=== PATIENT | female | born 1970 | race African-American/Black ===

== ENCOUNTER 2021-05-09 01:20 | Emergency (ER) | payer BC, SELFPAY ==
[2021-05-09 01:26] VITALS: BP 179/98; PULSE 87; RESP 18; TEMP 36.2; O2SAT 100
== END 2021-05-09 02:50 | disposition left against medical advice (07) ==
DX: Z53.21 Procedure and treatment not carried out due to patient leaving prior to being seen by health care provider (principal)
CPT/HCPCS: 99199

== ENCOUNTER 2021-10-22 15:49 | Emergency (ER) | payer BC, SELFPAY ==
--- NOTE | 2021-10-22 15:59 | ED.DENTAL ---
HPI - Dental/Oral General Chief complaint: Dental/Oral Stated complaint: Facial Pain Time Seen by Provider: 10/22/21 15:59 Source: patient Mode of arrival: ambulatory Limitations: no limitations History of Present Illness HPI Narrative: 51-year-old female presents with left-sided lower dental pain for 5 to 6 days. Has not seen a dentist since 2016. Denies fever chills. Eating and drinking normally. No difficulty swallowing. Noticed facial swelling yesterday. All systems reviewed and negative except as noted above. Related Data Allergies Allergy/AdvReac Type Severity Reaction Status Date / Time No Known Allergies Allergy Verified 10/22/21 16:08 Review of Systems Review of Systems: CONSTITUTIONAL: Denies fever, chills, or sweats. EYES: Denies visual changes, redness, or discharge. ENT: Denies rhinorrhea, congestion, sore throat, or otalgia. Reports left lower dental pain. CARDIOVASCULAR: Denies chest pain, palpitations, or edema. RESPIRATORY: Denies cough or dyspnea. GASTROINTESTINAL: Denies abdominal pain, nausea, vomiting, or diarrhea. GENITOURINARY: Denies dysuria or hematuria. SKIN: Denies rash or itching. MUSCULOSKELETAL: Denies back pain, joint pain, or myalgia. NEUROLOGIC: Denies headache, numbness, or weakness. PSYCHIATRIC: Denies anxiety or depression. All other systems reviewed are negative, except as documented in HPI. PMFSH Comments At time of signature, agree with nursing past medical, surgical, social and family history. There is no relevant family history pertinent to the presenting complaint. Exam Narrative: GENERAL: This is a well-nourished, well-developed patient, in no apparent distress. HEAD: normocephalic, atraumatic. EYES: PERRL. Sclera clear/white. Vision is grossly intact. EARS: External ears normal, auditory canals clear and without drainage, TMs normal without perforation. Hearing grossly intact. NOSE: External nose normal MOUTH: Multiple missing or decayed teeth. Swelling and erythema to gums of left lower mouth. NECK: Neck supple, non-tender without lymphadenopathy, masses or thyromegaly. CARDIOVASCULAR: Regular rate and rhythm without murmurs, gallops, or rubs. RESPIRATORY: Clear to auscultation. Breath sounds equal bilaterally. No wheezes, rales, or rhonchi. SKIN: warm, Dry, intact with no suspicious lesions or rash, good texture and turgor. NEURO: awake, alert, and oriented to person, place and time. There were no obvious focal neurologic abnormalities. EXTREMITIES: Normal range of motion to all extremities. Course Course Level of Care: Express Care Visit Vital Signs Vital signs: Reviewed MDM - Dental/Oral MDM Narrative Medical decision making narrative: Patient prescribed antibiotic for possible dental infection. Given dental clinic list for follow-up. Differential Diagnosis Differential diagnosis: Likely gingival abscess, dental caries, toothache and dental abscess Discharge Plan Discharge Clinical Impression: Toothache Patient Disposition: Home, Self-Care Condition: Stable Instructions: Toothache (ED) Additional Instructions: Take antibiotic as prescribed. Take ibuprofen every 6-8 hours. Follow-up with dentist at next available appointment. Prescriptions: New amoxicillin 875 mg tablet 875 mg PO Q12H 10 Days Qty: 20 RF: 0 Follow-up/Referrals: Shirley,MD Baldemar [Primary Care Provider] - Stand Alone Forms: Work/School Release IP Time of Disposition: 16:11
[2021-10-22 16:01] VITALS: BP 151/83; PULSE 86; RESP 18; TEMP 36.7; O2SAT 100
== END 2021-10-22 16:15 | disposition home or self-care (01) ==
PROVIDERS: Emergency Provider Nurse Practitioner Family; PCP Internal Medicine
DX: K08.89 Other specified disorders of teeth and supporting structures (principal); E78.00 Pure hypercholesterolemia, unspecified; E11.9 Type 2 diabetes mellitus without complications; I10 Essential (primary) hypertension
CPT/HCPCS: 99213; G0463

== ENCOUNTER 2021-11-05 18:55 | Emergency (ER) | payer BC, SELFPAY ==
--- NOTE | 2021-11-05 19:01 | ED.URI ---
HPI - URI/Sore Throat General Chief Complaint: Upper Respiratory Infection Stated Complaint: Cough Time Seen by Provider: 11/05/21 19:05 Source: patient, RN notes reviewed and old records reviewed Mode of arrival: ambulatory Limitations: no limitations History of Present Illness HPI Narrative: 51-year-old female presents to the [facility] with complaints of a sore throat x2 days. Has tried multiple [id number] products with minimal relief. Patient states that the pain was worse when she tried drinking her coffee this morning and felt like her throat was on fire. Denies any fevers, chest pain, abdominal pain. Onset (ago): day(s) (2) Description of mucous: clear Exacerbating factors: swallowing and speaking Related Data Home Medications Medication Instructions Recorded Confirmed amlodipine 5 mg tablet 5 mg PO DAILY 10/28/21 11/05/21 levetiracetam 500 mg tablet 500 mg PO Q12H 10/28/21 11/05/21 (Keppra) losartan 100 mg tablet 100 mg PO DAILY 10/28/21 11/05/21 multivitamin-ferrous 1 tablet PO DAILY 10/28/21 11/05/21 fumarate-folic acid 18 mg-400 mcg tablet (Centrum) potassium citrate 99 mg capsule 99 mg PO DAILY 10/28/21 11/05/21 Allergies Allergy/AdvReac Type Severity Reaction Status Date / Time No Known Allergies Allergy Verified 11/05/21 10:24 Review of Systems Review of Systems: All systems reviewed & are unremarkable except as noted in HPI and below Constitutional: Constitutional: Reports no additional constitutional complaints, Denies chills and Denies fever(s) Eyes: Eyes: Reports no additional eye complaints ENT: Reports as per HPI and Reports sore throat Cardiovascular: Cardiovascular: Reports no additional cardiovascular complaints Respiratory: Respiratory: Reports no additional respiratory complaints Gastrointestinal: Gastrointestinal: Reports no additional gastrointestinal complaints Musculoskeletal: Musculoskeletal: Reports no additional musculoskeletal complaints Integumentary/Breasts: Skin/Breast: Reports system reviewed and no additional complaints, except as docu Neurologic: Reports system reviewed and no additional complaints, except as documented Psychiatric: Psychiatric: Reports no additional psychiatric complaints Allergic/Immunologic: Allergic/Immunologic: Reports no additional allergic/immunologic complaints PMFSH Past Medical History Medical History Breast cancer 17 years ago Carpal tunnel syndrome of right wrist Congestive heart failure Epilepsia FH: mastectomy Hypertension Kidney stone Tubal Surgical History Surgical History H/O breast implant H/O lumpectomy Hx of breast reduction, elective Social History Social History Smoking packs per day: 0.5 Smoking cigarettes per day: 10.0 Smoking status: Current every day smoker Second hand tobacco smoke exposure: Yes Alcohol intake: current Alcohol use details: once year Substance use: current Substance use type: does not use Comments At the time of my signature, I reviewed and agree with the nursing past medical, surgical, social, and family history. There is no relevant family history pertinent to the patient complaint. Exam Const: General: healthy appearing, no acute distress and alert Nutritional Appearance: well nourished and obese Orientation/consciousness: patient oriented x3 Limitations: no limitations HENMT: Head: normal to inspection Ears: external ears normal General nose exam: Normal external nose present Face and sinus: normal facial exam Mouth: Yes Normal oral and palatal mucosa present Throat: uvula midline, abnormal tonsil bilateral hypertrophy 2+; no erythema, no exudates and crypts and postnasal drainage Eyes: Pupils: Equal, round and reactive pupils present Neck: Neck: normal visual inspection,
[2021-11-05 19:05] VITALS: BP 172/97; PULSE 78; RESP 20; TEMP 36.4; O2SAT 100
== END 2021-11-05 19:24 | disposition home or self-care (01) ==
PROVIDERS: Emergency Provider Nurse Practitioner; PCP Internal Medicine
DX: J02.0 Streptococcal pharyngitis (principal); F17.210 Nicotine dependence, cigarettes, uncomplicated; I11.0 Hypertensive heart disease with heart failure; I50.9 Heart failure, unspecified; Z85.3 Personal history of malignant neoplasm of breast; Z90.10 Acquired absence of unspecified breast and nipple; G40.909 Epilepsy, unspecified, not intractable, without status epilepticus
CPT/HCPCS: 87880; 99213; G0463

== ENCOUNTER 2021-12-02 13:49 | Emergency (ER) | payer BC, SELFPAY ==
[2021-12-02] VITALS (17 sets, daily range): BP systolic 160–195; BP diastolic 71–115; PULSE 72–83; RESP 16–18; TEMP 36.3–36.8; O2SAT 95–100
--- NOTE | ~2021-12-02 | CT_ITS ---
EXAMINATION: CT brain wo con DATE: 12/02/2021 14:50 INDICATION: Generalized headache following seizure and fall TECHNIQUE: Computed tomography (CT) of the head was performed without intravenous contrast. The mA wa s adjusted according to patient size. Iterative reconstruction technique was employed. Exam dose: 60 5.33 mGy-cm total exam DLP. COMPARISON: None FINDINGS: No intracranial mass lesion or hemorrhage or cerebrovascular accident. No midline shift or mass effect. Normal garsia-white matter differentiation. Normal ventricular size. No subdural or epidural hematoma. No fracture or bone destruction of the cranial vault. Included paranasal sinuses and mastoid air cell s are unremarkable. IMPRESSION: No significant abnormality Reviewed, dictated and finalized at [facility]. Reviewed, dictated and finalized at [facility]. IMPRESSION: No significant abnormality
[2021-12-02 15:26] LABS: Basophils Percent Auto 0.5 % (0.2-1.2); Eosinophils Absolute Auto 0.2 K/mm3 (0-0.3); Eosinophils Percent Auto 3.8 % (0-4.4); Hematocrit 44.5 % (37.0-47.0); Hemoglobin 13.9 g/dL (12.0-15.0); Immature Granulocyte Absolute 0.02 K/mm3 (0.00-0.031); Immature Granulocyte Percent A 0.3 % (0-0.5); Lymphocytes Absolute Auto 2.04 K/mm3 (0.9-3.2); Lymphocytes Percent Auto 32.7 % (18.3-44.2); Mean Corpuscular HGB Conc 31.2 g/dl (32-36); Mean Corpuscular Hemoglobin 27.9 pg (26-34); Mean Corpuscular Volume 89.2 fl (80-100); Mean Platelet Volume 9.3 fl (7.4-10.4); Monocytes Absolute Auto 0.5 K/mm3 (0.1-0.6); Neutrophils Absolute Auto 3.4 K/mm3 (1.3-6.7); Neutrophils Percent Auto 54.7 % (45.5-73.1); Platelet Count Result 307 k/mm3 (150-375); Red Blood Count 4.99 M/mm3 (4.2-5.4); Red Cell Distribution Width 15.4 % (11.5-14.5); White Blood Count 6.2 K/mm3 (4.5-10.0)
[2021-12-02 15:36] LABS: Alanine Aminotransferase 24 U/L (6-35); Albumin Level 4.2 g/dL (3.5-5.1); Alkaline Phosphatase 113 U/L (38-126); Anion Gap 9 mmol/L (8-16); Aspartate Amino Transferase 27 U/L (14-36); Bilirubin,Total 0.7 mg/dL (0.2-1.3); Blood Urea Nitrogen 7 mg/dL (7-17); Carbon Dioxide 22 mmol/L (22-30); Chloride 105 mmol/L (98-107); Estimated Glomerular Filt Rate > 60; Glucose 97 mg/dL (65-110); Potassium 4.1 mmol/L (3.4-5.0); Sodium 136 mmol/L (137-145)
--- NOTE | 2021-12-02 15:57 | ED.SEIZURE ---
HPI - Seizure General Chief Complaint: Seizure Stated Complaint: SZ Time Seen by Provider: 12/02/21 14:00 Source: patient, EMS and other History of Present Illness HPI Narrative: Patient presents with a seizure. Patient reports she does not remember the event. She was walking up to go to the restroom She knows she woke up on the ground with healthcare workers. EMS reported that she had a witnessed seizure. Patient has a known seizure disorder is on Keppra her last seizure approximately 3 weeks ago. She was single about taking her medications but she has been under a lot of stress which triggers her migraines which was her seizure disorder. For she has a headache after the seizure which is a more intense than her prior seizures however is doing fairly well. She denies any recent fevers, cough, congestion, nausea, vomiting. Denies any focal numbness or weakness. Reports some blurry vision which is typical after her. Related Data Home Medications Medication Instructions Recorded Confirmed amlodipine 5 mg tablet 5 mg PO DAILY 10/28/21 11/05/21 levetiracetam 500 mg tablet 500 mg PO Q12H 10/28/21 11/05/21 (Keppra) losartan 100 mg tablet 100 mg PO DAILY 10/28/21 11/05/21 multivitamin-ferrous 1 tablet PO DAILY 10/28/21 11/05/21 fumarate-folic acid 18 mg-400 mcg tablet (Centrum) potassium citrate 99 mg capsule 99 mg PO DAILY 10/28/21 11/05/21 chlorthalidone 25 mg tablet 25 mg PO DAILY 11/24/21 furosemide 40 mg tablet 40 mg PO QAM 11/24/21 Allergies Allergy/AdvReac Type Severity Reaction Status Date / Time No Known Allergies Allergy Verified 11/05/21 10:24 Review of Systems Review of Systems: CONSTITUTIONAL: Denies fever, chills, or sweats. EYES: Denies visual changes, redness, or discharge. ENT: Denies rhinorrhea, congestion, sore throat, or otalgia. CARDIOVASCULAR: Denies chest pain, palpitations, or edema. RESPIRATORY: Denies cough or dyspnea. GASTROINTESTINAL: Denies abdominal pain, nausea, vomiting, or diarrhea. GENITOURINARY: Denies dysuria or hematuria. SKIN: Denies rash or itching. MUSCULOSKELETAL: Denies back pain, joint pain, or myalgia. NEUROLOGIC: Denies numbness, dizziness, or weakness. PSYCHIATRIC: Denies anxiety or depression. All systems reviewed & are unremarkable except as noted in HPI and below PMFSH Past Medical History Medical History Breast cancer 17 years ago Carpal tunnel syndrome of right wrist Congestive heart failure Epilepsia FH: mastectomy Hypertension Kidney stone Tubal Surgical History Surgical History H/O breast implant H/O lumpectomy Hx of breast reduction, elective Social History Social History Smoking packs per day: 0.5 Smoking cigarettes per day: 10.0 Smoking status: Current every day smoker Second hand tobacco smoke exposure: Yes Alcohol intake: current Alcohol use details: once year Substance use: current Substance use type: does not use Exam Narrative: GENERAL: Well-appearing, well-nourished, and in no acute distress. HEAD: Normocephalic, atraumatic. EYES: PERRLA and EOMI. ENT: Nares clear, no rhinorrhea or epistaxis. Mucous membranes moist. NECK: Supple. No masses. No JVD CHEST: Clear to auscultation. No respiratory distress. No wheezes rales or rhonchi HEART: Regular rate and rhythm. No murmur heard. Normal peripheral pulses. ABDOMEN: Soft, nontender, nondistended, normal active bowel sounds. EXTREMITIES: Normal range of motion. No edema. SKIN: Warm, dry, no rash. NEURO: Cranial nerves II through XII are intact patient is 5 out of 5 strength in all extremities sensation intact light touch in all extremities alert and oriented x3. PSYCH: Normal mood and affect. Course Reevaluation(s) Reevaluation #1: Patient feeling improved results and plan reviewed with
[2021-12-05 16:16] LABS: Levetiracetam Keppra <2.0
== END 2021-12-02 17:22 | disposition home or self-care (01) ==
PROVIDERS: Emergency Provider Emergency Medicine; PCP Internal Medicine
DX: G40.909 Epilepsy, unspecified, not intractable, without status epilepticus (principal); Z85.3 Personal history of malignant neoplasm of breast; I10 Essential (primary) hypertension
CPT/HCPCS: 36415; 70450; 80053; 80177; 85025; 99284

== ENCOUNTER 2022-01-25 13:00 | Outpatient (RCR) | payer OTHER, SELFPAY ==
--- NOTE | 2022-01-14 08:55 | OTOPEVAL ---
OCCUPATIONAL THERAPY INITIAL EVALUATION REPORT 01/14/22 Thank you for referring Giorgio Larose to [facility] [place].? The patient is scheduled to be seen for therapy? 2x/week for 4 weeks. Please review, sign, date and return this plan of care AAMIR. I agree with and certify that the following plan of care is medically necessary. Referring Physician Date Referring Provider: Eliu Steward MD *OT Outpatient Evaluation Start: 01/14/22 07:40 Outpatient Past Medical History Neurological History Hx Epilepsy Yes Cardiovascular History Hx Congestive Heart Failure Yes Hx Hypercholesterolemia Yes Hx Hypertension Yes Genitourinary History Hx Kidney Stones Yes Endocrine History Hx Diabetes Yes Other History Hx Cancer Yes: breast cancer Hx Implanted Device Yes: port and then removed Evaluation Information Problem Diagnosis Right carpal tunnel syndrome, enthesopathies Subjective Information Patient unsure how long she's Query Text:As Reported By Patient/ had symptoms, she guesses at Family least two years. 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 She states she has been unable to braid her grand childrens hair for 2 months now. 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 She states she sometimes wakes up in the middle of the night due to the severe pain. She has to use her left hand to brush her teeth. She is scheduled for an EMG on 03/04/22. Pain Assessment Self Report Pain Assessment Right Hand(s) Reported Pain Level 8 Pain Description Tingling Lowest Pain Intensity 6 Greatest Pain Intensity 10 Pain Score Pain Score 8: Self Report Upper Extremity Range of Motion Elbow/Forearm Range of Motion Right Elbow Flexion - Active 120 Elbow Extension - Active -30 Elbow/Forearm Range of Motion Comments Pronation/supination are WNL. Patient reports sharp increase in pain when trying to straighten or bend her elbow. Tends to move her arm with the help of her left hand. Actively she is unable to touch her
--- NOTE | 2022-01-22 11:24 | PCOTNOTE ---
Patient did not show up for scheduled appointment this date. Called patient and left voicemail regarding next appt. time.
--- NOTE | 2022-01-29 08:27 | PCOTNOTE ---
Late note for 01/28/22 - Patient did not show up for scheduled appointment this date.
--- NOTE | 2022-02-02 14:29 | OTOPDC ---
Evaluation Information Assessment Status Discharge Subjective Information Patient has not returned for any further treatments since 01/25/2022, therefore she will be discharged at this time. Patient?s initial visit was on 01/14/2022 and she had a total of 2 visits . She has not shown for 3 appointments and we have been unable to reach her. Therapy progress has been very limited due to amount of pain and patient is very guarded when asked to move the right UE. She does have reduced pain with active ROM HEP, however. She also is very hypersensitive and has been unable to tolerate soft tissue mobilization to the right elbow or wrist. At this time she was just working on being able to tolerate rubbing lotion in. The goals have not been met. She has been instructed in active ROM and the beginning phases of desensitization.
== END 2022-03-30 11:57 | disposition home or self-care (01) ==
LOC: ANHOT 13:00
PROVIDERS: PCP Internal Medicine; Visit Provider Orthopaedic Surgery
DX: G56.01 Carpal tunnel syndrome, right upper limb (principal); M77.8 Other enthesopathies, not elsewhere classified
CPT/HCPCS: 97110; 97140; 97166; 99199

== ENCOUNTER 2022-03-04 09:35 | Outpatient (CLI) | payer OTHER, SELFPAY ==
--- NOTE | 2022-03-04 11:00 | NEURO_ITS ---
IMRESSION: Complaints right hand pain. # Evidence of mild right carpal tunnel syndrome. # EMG examination was normal. Nerve Conduction Studies Anti Sensory Summary Table Stim Site NR Peak (ms) P-T Amp (?V) Site1 Site2 Delta-P (ms) Dist (cm) Omkar (m/s) Right Median Anti Sensory (2-3nd Digit) Wrist 5.0 27.6 Wrist 2-3nd Digit 5.0 14.0 28 Wrist 5.4 13.6 Wrist 2-3nd Digit 5.0 14.0 28 Right Radial Anti Sensory (Base 1st Digit) Wrist 2.3 36.0 Wrist Base 1st Digit 2.3 0.0 Right Ulnar Anti Sensory (5th Digit) Wrist 3.0 29.9 Wrist 5th Digit 3.0 14.0 47 Motor Summary Table Stim Site NR Onset (ms) O-P Amp (mV) Site1 Site2 Delta-0 (ms) Dist (cm) Omkar (m/s) Right Median Motor (Abd Poll Brev) Wrist 4.0 7.6 Elbow Wrist 4.4 25.0 57 Elbow 8.4 7.0 Right Ulnar Motor (Abd Dig Minimi) Wrist 2.7 2.8 A Elbow Wrist 5.3 31.0 58 A Elbow 8.0 2.4 B Elbow Wrist 3.7 23.0 62 B Elbow 6.4 2.7 F Wave Studies NR F-Lat (ms) L-R F-Lat (ms) Right Median (Mrkrs) (Abd Poll Brev) 30.55 Right Ulnar (Mrkrs) (Abd Dig Min) 28.44 EMG Side Muscle Nerve Root Ins Act Fibs Amp Dur Recrt Comment Right 1stDorInt Ulnar C8-T1 Nml Nml Nml Nml Nml Right Ext Indicis Radial (Post Int) C7-8 Nml Nml Nml Nml Nml Right Ext Digitorum Radial (Post Int) C7-8 Nml Nml Nml Nml Nml Right BrachioRad Radial C5-6 Nml Nml Nml Nml Nml Right PronatorTeres Median C6-7 Nml Nml Nml Nml Nml Right Abd Poll Brev Median C8-T1 Nml Nml Nml Nml Nml MTDD
== END 2022-03-04 09:36 | disposition home or self-care (01) ==
PROVIDERS: PCP Internal Medicine; Visit Provider Orthopaedic Surgery
DX: G56.01 Carpal tunnel syndrome, right upper limb (principal)
CPT/HCPCS: 95886; 95909

== ENCOUNTER 2022-03-18 08:24 | Outpatient (CLI) | payer OTHER, SELFPAY ==
--- NOTE | 2022-03-18 08:36 | ECG_ITS ---
Measurements Intervals [place] Rate: 75 P: 52 TN: 185 QRS: -43 QRSD: 126 T: 81 QT: 428 QTc: 480 Interpretive Statements SINUS RHYTHM POSSIBLE LEFT ATRIAL ENLARGEMENT [-0.1mV P WAVE IN V1/V2] MARKED LEFT AXIS DEVIATION [QRS AXIS < -30] LEFT VENTRICULAR HYPERTROPHY AND ST-T CHANGE [VOLTAGE CRITERIA PLUS ST/T ABNORMALITY] POSSIBLE SEPTAL MYOCARDIAL INFARCTION [30 ms Q WAVE IN V1/V2], OF INDETERMINATE AGE ARTIFACT PRESENT IN LEAD V3 AND V5 NO PREVIOUS ECG AVAILABLE FOR COMPARISON Electronically Signed On 03-18-2022 14:45:14 CDT by Nicki Bishop M.D.
[2022-03-18 09:07] LABS: Anion Gap 10 mmol/L (8-16); Blood Urea Nitrogen 11 mg/dL (7-17); Calcium 8.8 mg/dL (8.4-10.2); Carbon Dioxide 26 mmol/L (22-30); Chloride 106 mmol/L (98-107); Estimated Glomerular Filt Rate > 60; Glucose 103 mg/dL (65-110); Potassium 3.5 mmol/L (3.4-5.0); Sodium 142 mmol/L (137-145)
== END 2022-03-18 08:25 | disposition home or self-care (01) ==
LOC: ANHSURGERY 08:29
PROVIDERS: Anesthesiology; PCP Internal Medicine; Visit Provider Orthopaedic Surgery
DX: Z01.818 Encounter for other preprocedural examination (principal); I10 Essential (primary) hypertension; R94.31 Abnormal electrocardiogram [ECG] [EKG]
CPT/HCPCS: 36415; 80048; 93005

== ENCOUNTER 2022-03-23 01:43 | Day surgery (SDC) | payer OTHER, SELFPAY ==
[2022-03-16 09:04] VITALS: BMI 43.9
--- NOTE | 2022-03-16 09:12 | PC.NURSE ---
Report to the Outpatient Waiting Room, entrance under the green pavilion located off [facility], at time _1130 on date 03/23/22. OR Time: __1330_. Time changes happen often and if your time is changed the preop area will call you the afternoon before. - You and your visitor will be asked to self-screen and do not enter if you have any COVID symptoms. - We encourage only one visitor and NO visitors under age 16 are allowed at this time. Your visitor will receive communication by the phone number that is given day of service. - The patient visitor is requested to social distance or may leave the building when not with patient due to restrictions. - A mask is required within the hospital. Patients may have clear liquids (water, carbonated beverages, clear teas, apple juice) until 3 hours prior to surgery with a maximum of 20 ounces. - No food from midnight until time of surgery - Infants may have breast milk until 4 hours before surgery, infant formula 6 hours prior to surgery. - Children will be allowed to drink immediately following surgery. If applicable, please bring a bottle or sippy cup to assist with drinking. Juice, water, soda, and popsicles are readily available. For infants on formula, please bring formula the day of surgery. Pacifiers are allowed. Take the following medications with a SIP of water the morning of surgery: KEPPRA, AMLODIPINE Medications to discontinue per physician MULTIVITAMIN Date to take last dose 03/19/22 Please no make-up, nail german, hairspray, perfume, deodorant, or body powder the day of surgery. No jewelry (including any body piercings) or valuables the day of surgery, leave them at home. Please take a shower or bath the night before, or the morning of, surgery with an antibacterial soap. Wear comfortable, loose fitting clothing. Children are encouraged to wear pajamas. - Jewelry must be removed prior to entering the operating room. Rings and piercings that are not removed may be cut off. - The hospital will not accept responsibility for valuables. - Please leave all valuables, including medications, at home the day of surgery. If you are going home after surgery, a licensed services delivery driver must drive you home. - NO public transportation without another adult. - We recommend that an adult stay with you for 24 hours following discharge. - We also recommend that you do not drive, make important decision, drink alcoholic beverages, or take any drugs that were not prescribed by your health care provider for at least 24 hours after your discharge time. For Pediatric surgeries, we recommend two adults accompany the child home. Follow any additional instructions given to you from your surgeon. If you or anyone in your household have experienced Covid symptoms in the past week, please notify your surgeon or the nurse liaison at the phone number below for possible testing. Telephone instructions given to PATIENT_and asked if any additional questions and then verbalized understanding. Patient advised to call surgeon office or pre surgery nurse liaison [phone] if any additional questions.
[2022-03-23] VITALS (10 sets, daily range): BP systolic 136–210; BP diastolic 84–112; PULSE 69–85; RESP 14–20; TEMP 36–36.5; O2SAT 97–100
--- NOTE | 2022-03-23 10:55 | P.PNAN_ITS ---
Anes - Initial Pre Proc Eval Procedure: Operation Date: 03/23/22 13:30 Proposed Procedures p Right Carpal Tunnel Release - Eliu Steward MD Date/Time: 03/23/22 10:55 Surgeon: Eliu Steward MD Pre Op Diagnosis: right carpal tunnel syndrome Patient Data Age: 51 Gender: F Height: 1.75 m Weight: 135 kg Allergies Allergy/AdvReac Type Severity Reaction Status Date / Time paper tape Allergy Mild blisters Uncoded 03/23/22 11:25 Home Medications Medication Instructions Recorded Confirmed Type amlodipine 5 mg tablet 5 mg PO DAILY 10/28/21 03/23/22 History levetiracetam 500 mg tablet 500 mg PO Q12H 10/28/21 03/23/22 History (Keppra) losartan 100 mg tablet 100 mg PO DAILY 10/28/21 03/23/22 History multivitamin-ferrous 1 tablet PO DAILY 10/28/21 03/23/22 History fumarate-folic acid 18 mg-400 mcg tablet (Centrum) potassium citrate 99 mg capsule 99 mg PO DAILY 10/28/21 03/23/22 History chlorthalidone 25 mg tablet 25 mg PO DAILY 11/24/21 03/23/22 History furosemide 40 mg tablet 40 mg PO QAM 11/24/21 03/23/22 History Patient hx anesthesia problems: none Family hx anesthesia problems: none Results Review: All pre-operative results and documents have been reviewed as part of the pre- operative evaluation. [facility] Past Medical History Medical History (Updated 03/10/22 @ 10:25 by Lissa Major) Breast cancer 17 years ago Carpal tunnel syndrome of right wrist Congestive heart failure Epilepsia FH: mastectomy Hypertension Kidney stone Tubal Surgical History Surgical History H/O breast implant H/O lumpectomy Hx of breast reduction, elective Family History Family History (Updated 01/06/22 @ 15:15 by Melissa Martinez MA) Grandparent Cancer Social History Social History Smoking packs per day: 0.5 Smoking cigarettes per day: 10.0 Years smoked: 20 Smoking pack-years: 10.00 Smoking status: Current every day smoker Second hand tobacco smoke exposure: Yes Alcohol intake: current Alcohol use details: once year Substance use: current Substance use type: does not use Living arrangements: with family Kinza - Matt Final PreProcedure Day of Procedure 03/23/22 10:55 Patient weight: morbidly obese Heart: regular rate and rhythm Lungs: clear to auscultation Airway: Mallampati scale class II Neurological: alert and oriented Last oral intake: >/= 8 hours ASA classification: III Emergent: no Anesthetic plan: proceed Anesthesia type and monitoring: general LMA and standard monitoring Results Review: All pre-operative results and documents have been reviewed as part of the pre- operative evaluation. Informed Consent: The patient's anesthetic plan and its attendant risks and benefits were discussed with the patient/family/POA. Questions were solicited and answers provided to the satisfaction of the patient/family/POA.
--- NOTE | 2022-03-23 11:18 | WPDHPUPDATE1 ---
History and Physical Update Update Date/Time: 03/23/22 11:18 History and Physical has been reviewed, including an updated exam of the patient. There are NO changes in the patient's condition. Risks, benefits, and alternatives have been discussed and questions answered. Patient agrees to proceed with procedure.
--- NOTE | 2022-03-23 12:11 | SUR.PREOP ---
Hx left mastectomy. Discussed with patient and Dr Khan concerning need for IV. Both said to use the left arm.
[2022-03-23] MEDS: LACTATED RINGERS 1,000 ML 30 ML IV CONT (12:46)
[2022-03-23] MEDS: ACETAMINOPHEN 500 MG TABLET 1000 MG PO (12:46)
[2022-03-23] MEDS: KETOROLAC 15 MG/ML VIAL (*BKC) IV PUSH (12:49)
--- NOTE | 2022-03-23 14:11 | SUR.PREOP ---
Discussed delay with patient.
[2022-03-23] MEDS: ceFAZolin 3 GM/D5W 100 ML 100 ML IVPB (14:41)
[2022-03-23] MEDS: BUPIVACAINE/EPINEPHRINE 0.25% 50 ML VIAL 10 ML INFILTRATE (14:59)
--- NOTE | 2022-03-23 15:43 | P.OP_ITS ---
Procedure Note - Detailed Date of Procedure 03/23/22 Pre-op Diagnosis Right carpal tunnel syndrome Post-op Diagnosis Same Procedure Performed Right Carpal tunnel release Surgeon Eliu Steward MD Tool And Die Technician Rosie Wilkinson PA-C Anesthesia General Description of Procedure After a general anestheic was administer, the hand was prepped and draped in the usual sterile fashion. The proposed incision was marked using typical anatomic landmarks. 6ML 0.5% Marcaine with epinephrine was injected along the incision line and at the distal forearm. The limb was exsanguinated and the tourniquet inflated to 250 millimeters of mercury. A longitudinal incision was taken sharply. Dissection was brought down to the transverse carpal ligament. Under direct vision the ligament was incised sharply. The proximal release was carried out with dissection scissors. The contents of the carpal canal were protected with a [place] elevator. The transverse carpal ligament was confirmed to be widely patent. The wound closed with 3-0 Prolene. Sterile dressing was applied with a soft splint. The patient was extubated and brought to the recovery room in stable condition. Estimated Blood Loss 1 Tourniquet Time 6 Pathology None sent Complications No immediate complications Condition Stable Disposition PACU [facility] Billing Surgery - Charge Forward: Surgery Billing
[2022-03-23] MEDS: LABETALOL HCL INJ 100 MG/20 ML VIAL 10 MG IV PUSH (16:21)
[2022-03-23] MEDS: fentaNYL CITRATE INJ (*CRX) 100 MCG/2 ML VIAL 25 MCG IV PUSH ×2 (17:06→17:09)
--- NOTE | 2022-03-23 18:05 | SUR.PHASEII ---
1730 anesthesia is aware of high bp, pt instructed to go home and take her losartan and follow up with primary
== END 2022-03-23 17:55 | disposition home or self-care (01) ==
PROVIDERS: PCP Internal Medicine; Visit Provider Orthopaedic Surgery
PROC: (CPT 64721; principal; 2022-03-23 13:30)
DX: G56.01 Carpal tunnel syndrome, right upper limb (principal); I11.0 Hypertensive heart disease with heart failure; I50.9 Heart failure, unspecified; G40.909 Epilepsy, unspecified, not intractable, without status epilepticus; Z85.3 Personal history of malignant neoplasm of breast; F17.210 Nicotine dependence, cigarettes, uncomplicated; E66.01 Morbid (severe) obesity due to excess calories; Z68.41 Body mass index [BMI] 40.0-44.9, adult
CPT/HCPCS: 64721; A9270; J0690; J1885; J2250; J2405; J2704; J3010; J7120

== ENCOUNTER 2022-04-19 07:14 | Outpatient (RCR) | payer OTHER, SELFPAY | END 2022-07-05 14:02 | disposition home or self-care (01) | LOC: ANHOT 07:14 | PROVIDERS: PCP Internal Medicine; Visit Provider Physician Assistant Surgical | DX: Z47.89 Encounter for other orthopedic aftercare (principal) | CPT/HCPCS: 99199 ==

== ENCOUNTER 2022-05-23 10:55 | Observation (INO) | payer OTHER, SELFPAY ==
[2022-05-23] VITALS (31 sets, daily range): BP systolic 145–189; BP diastolic 88–106; PULSE 79–95; RESP 16–26; TEMP 36.3; O2SAT 92–100
--- NOTE | ~2022-05-23 | CT_ITS ---
EXAMINATION: CTA chest PE protocol DATE: 05/23/2022 13:29 INDICATION: Chest pain TECHNIQUE: Computed tomography angiography (CTA) of the chest was performed with 100 mL Omnipaque-350 intravenous contrast timed to evaluate the pulmonary arteries. Coronal maximum intensity projection 3D-reconstructions were created by the technologist. The dose-length product (DLP) was 838.98 mGy-cm. Automated exposure control and iterative reconstruction technique were employed. COMPARISON: None. FINDINGS: The pulmonary arteries are well-opacified. No pulmonary embolism is identified. Respiratory motion artifact slightly limits the examination. There are changes of left mastectomy with implant r econstruction. The heart size is normal. There is mild bilateral hilar lymphadenopathy, likely reacti ve. There are dependent airspace opacities in interlobular septal thickening of the lungs. No pleural effusion or pneumothorax. There is mild thoracic spondylosis. IMPRESSION: 1. No pulmonary embolism identified, sensitivity slightly limited by motion artifact. 2. Dependent airspace opacities in interlobular septal thickening of the lungs, likely pneumonia, ate lectasis, and mild pulmonary edema. Reviewed, dictated and finalized at location A. ZE PLATER IMPRESSION: 1. No pulmonary embolism identified, sensitivity slightly limited by motion art ifact. 2. Dependent airspace opacities in interlobular septal thickening of the lungs, likely pneumonia, atelectasis, and mild pulmonary edema.
--- NOTE | ~2022-05-23 | XR_ITS ---
EXAMINATION: XR chest 2V DATE: 05/23/2022 11:32 INDICATION: Generalized chest pain, history of congestive heart TECHNIQUE: Frontal and lateral views of the chest are obtained COMPARISON: None available FINDINGS: There are interstitial opacities with a mid and lower lung zone predominance. No pleural ef fusion or pneumothorax. The cardiomediastinal silhouette is normal. Surgical clips are noted in the l eft axilla. IMPRESSION: 1. Interstitial opacities with a mid and lower lung zone predominance, likely mild pulmonary edema. Reviewed, dictated and finalized at location A. TIONAL HORTICULTURE INSTRUCTOR IMPRESSION: 1. Interstitial opacities with a mid and lower lung zone predominance, likely m ild pulmonary edema.
--- NOTE | 2022-05-23 11:03 | ECG_ITS ---
Measurements Intervals [place] Rate: 91 P: 48 CT: 186 QRS: -43 QRSD: 128 T: 82 QT: 427 QTc: 525 Interpretive Statements SINUS RHYTHM POSSIBLE LEFT ATRIAL ENLARGEMENT [-0.1mV P-WAVE IN V1/V2] LEFT AXIS DEVIATION [QRS AXIS < -30] POSSIBLE LEFT VENTRICULAR HYPERTROPHY [VOLTAGE CRITERIA PLUS LAE OR QRS WIDENING] COMPARED TO ECG 03/18/2022 08:46:51 NO SIGNIFICANT CHANGES Electronically Signed On 05-23-2022 14:49:31 LANDSCAPE CONTRACTOR by Karen Wynn M.D.
[2022-05-23] MEDS: ASPIRIN 81 MG CHEWABLE TABLET 324 MG PO (11:11)
--- NOTE | 2022-05-23 11:19 | ED.CHESTPAIN ---
HPI - Chest Pain General Chief Complaint: Chest Pain Stated Complaint: CP Time Seen by Provider: 05/23/22 11:09 History of Present Illness HPI narrative: Patient is a 51-year-old female with history of CHF here for evaluation of chest pain. Patient states the pain has been going on for the past 8 hours. Pain is in the center of her chest, feels like a knife is stabbing me but also is described as a crushing sensation. Occasionally will radiate down her left arm. Associated with some shortness of breath, and has been coughing since yesterday. she denies history of previous similar sensation. She was in her usual state of health yesterday. No fevers, chills, nausea, vomiting, syncope. Does note that her shoes are fitting tighter than usual. She has only seen a senior market research analyst once in the past and was told she had CHF but has not seen him in over 3 years. She is unsure of their name. She has never had a cardiac catheterization in the past. Related Data Home Medications Medication Instructions Recorded Confirmed multivitamin-ferrous 1 tablet PO DAILY 10/28/21 05/21/22 fumarate-folic acid 18 mg-400 mcg tablet (Centrum) potassium citrate 99 mg capsule 99 mg PO DAILY 10/28/21 05/21/22 Allergies Allergy/AdvReac Type Severity Reaction Status Date / Time paper tape Allergy Mild blisters Uncoded 05/23/22 11:50 Review of Systems Review of Systems: Gen: Denies fevers or chills Eyes: Denies eye pain or visual change ENT: Denies congestion Respiratory: Reports cough CV: Reports chest pain GI: Denies abdominal pain nausea, emesis or diarrhea denies burning, urgency, frequency or hematuria Musculoskeletal: Denies back pain or muscle pain Neuro: Denies numbness, tingling, weakness or focal weakness Skin: Denies rash Except as documented, all other systems reviewed and negative [facility] Past Medical History Medical History Breast cancer 17 years ago Carpal tunnel syndrome of right wrist Congestive heart failure Epilepsia FH: mastectomy Hypertension Kidney stone Sore throat Tubal Surgical History Surgical History H/O breast implant H/O lumpectomy Hx of breast reduction, elective Family History Family History Grandparent Cancer Social History Social History (Updated 04/20/22 @ 15:32 by Molly Garcia CMA) Smoking packs per day: 0.5 Smoking cigarettes per day: 10.0 Years smoked: 20 Smoking pack-years: 10.00 Smoking status: Current every day smoker Tobacco type: cigarettes Second hand tobacco smoke exposure: Yes Alcohol intake: current Alcohol use details: once year Substance use: current Substance use type: does not use Lack of Transportation: No Lack of Food: Never True Current Housing: I Have Housing Concerned About Future Housing: No Difficulty Paying Gas/Electric Bills: No Difficulty Paying for Meds: No Currently Unemployed: YES Education: High School Diploma/GED Difficulty w/ Childcare or Family Care: No Exam Narrative: APPEARANCE: Well appearing, no pain in distress, well-nourished. Head: Normocephalic and atraumatic. EYES: PERRLA/EOMI, conjunctivae clear NOSE: No nasal drainage EARS: External ear normal in appearance THROAT: Oropharynx is clear. Mucous membranes are moist. NECK: Supple. No adenopathy, no masses. RESPIRATORY: Airway patent, respirations nonlabored. Clear to auscultation bilaterally, no rales, rhonchi, wheezing. CARDIOVASCULAR: Regular rate and rhythm without murmurs, rubs, or gallops. ABDOMINAL: Normoactive bowel sounds. Soft, nontender, nondistended. No rebound tenderness or guarding. MUSCULOSKELETAL: Trace nonpitting edema to bilateral feet. Extremities are warm and well-perfused. Moves all extremities well. NEURO: Normal speech. No focal
[2022-05-23 11:31] LABS: Basophils Percent Auto 0.6 % (0.2-1.2); Eosinophils Absolute Auto 0.2 K/mm3 (0-0.3); Eosinophils Percent Auto 2.9 % (0-4.4); Hematocrit 39.4 % (37.0-47.0); Hemoglobin 12.5 g/dL (12.0-15.0); Immature Granulocyte Absolute 0.02 K/mm3 (0.00-0.031); Immature Granulocyte Percent A 0.3 % (0-0.5); Lymphocytes Absolute Auto 2.29 K/mm3 (0.9-3.2); Lymphocytes Percent Auto 32.9 % (18.3-44.2); Mean Corpuscular HGB Conc 31.7 g/dl (32-36); Mean Corpuscular Hemoglobin 27.3 pg (26-34); Mean Platelet Volume 9.3 fl (7.4-10.4); Monocytes Absolute Auto 0.3 K/mm3 (0.1-0.6); Monocytes Percent Auto 4.7 % (2.6-8.5); Neutrophils Absolute Auto 4.1 K/mm3 (1.3-6.7); Neutrophils Percent Auto 58.6 % (45.5-73.1); Platelet Count Result 392 k/mm3 (150-375); Red Blood Count 4.58 M/mm3 (4.2-5.4); Red Cell Distribution Width 15.7 % (11.5-14.5)
[2022-05-23 11:40] LABS: Prothrombin Time 12.8 Seconds (11.1-14.7)
[2022-05-23 11:42] LABS: Partial Thromboplastin Time 29.1 SECONDS (22.3-36.8)
[2022-05-23] MEDS: levETIRAcetam 500MG/NACL 100ML 500 MG/100 ML BAG 400 MG IVPB (11:47)
--- NOTE | 2022-05-23 11:48 | PC.NURSE ---
Pt had a very short/ less than a minute seizure. Pt has hx of seizures and is on medications.
[2022-05-23 11:51] LABS: NT Pro B Type Natriuretic Pept 1150 pg/mL (5-100); Troponin I < 0.012 ng/mL (0.000-0.034)
[2022-05-23 11:52] LABS: Alanine Aminotransferase 19 U/L (6-35); Albumin Level 4.5 g/dL (3.5-5.1); Alkaline Phosphatase 108 U/L (38-126); Anion Gap 5 mmol/L (8-16); Aspartate Amino Transferase 28 U/L (14-36); Bilirubin,Total 0.6 mg/dL (0.2-1.3); Blood Urea Nitrogen 9 mg/dL (7-17); Calcium 9.2 mg/dL (8.4-10.2); Carbon Dioxide 28 mmol/L (22-30); Chloride 105 mmol/L (98-107); Estimated CRCL calculation 106 ml/min; Estimated Glomerular Filt Rate > 60; Glucose 102 mg/dL (65-110); Lipase 49 U/L (23-300); Potassium 3.8 mmol/L (3.4-5.0); Sodium 138 mmol/L (137-145)
[2022-05-23 12:12] LABS: D Dimer 2.08 ug/mL (<0.48)
[2022-05-23 15:33] LABS: Troponin I < 0.012 ng/mL (0.000-0.034)
[2022-05-23 15:48] LABS: Influenza A QL RT-PCR Negative (Negative); Influenza B QL RT-PCR Negative (Negative); SARS-CoV-2 RNA PCR Negative
[2022-05-23] MEDS: FUROSEMIDE INJ 40 MG/4 ML VIAL IV PUSH (15:56)
[2022-05-23] MEDS: NITROGLYCERIN SL 0.4 MG TABLET SUBLINGUAL (15:57)
[2022-05-23] MEDS: MORPHINE SULFATE (*CRX) 4 MG/ML INJ IV PUSH (16:20)
[2022-05-23] MEDS: DOXYCYCLINE 100 MG/NS 100 ML 100 MG/100 ML BAG IVPB (17:17)
[2022-05-23 17:41] LABS: Troponin I < 0.012 ng/mL (0.000-0.034)
--- NOTE | 2022-05-23 19:00 | PM.IMHP ---
H&P: HPI History of Present Illness Date/Time: 05/23/22 19:00 Chief Complaint: Chest pain. Narrative: This is a pleasant 51-year-old female with history of hypertension, diastolic congestive heart failure, epilepsy, and history of DVT related to Port-A-Cath who presented to the emergency department for evaluation of chest pain. The day after Thanksgiving she was sick for several days with high fevers, cough, and nausea. Her symptoms improved however returned approximately 2 weeks thereafter and she has had a lingering, nonproductive cough and intermittent nausea lower since that time. She has been having pleuritic chest pain the last couple of days which she describes as knife-like pain, worse with movement, deep inspiration, and cough. Her D-dimer and proBNP were a bit elevated and a subsequent CT of the chest showed no evidence of pulmonary embolism however it noted dependent airspace opacities in the anterior a lobular septal thickening of the lungs distant with pneumonia, atelectasis, or mild pulmonary edema. EKG showed a sinus rhythm with left axis deviation and probable LVH and left atrial enlargement. Troponins have been negative x3 however given her history I was asked to admit her for close monitoring and Cardiology consultation. At the time my evaluation she is resting comfortably and has no specific complaints though she continues to have the pleuritic pain with coughing. Review of Systems Review of Systems: Twelve systems were reviewed and are negative except for as per HPI. [facility] Past Medical History Medical History (Updated 05/23/22 @ 23:33 by Chanelle العراقي PA-C) Breast cancer (2004) Status post left breast lumpectomy and chemo radiation. Congestive heart failure Deep venous thrombosis Related to Port-A-Cath. Epilepsy Hypertension Kidney stone Surgical History Surgical History (Updated 05/23/22 @ 23:30 by Chanelle العراقي PA-C) History of bilateral breast reduction surgery History of carpal tunnel release History of lumpectomy of left breast Family History Family History Grandparent Cancer Social History Social History (Updated 05/23/22 @ 23:31 by Chanelle العراقي PA-C) Social History: Surrogate medical decision maker: Adán Scott, mother. Code status: Full code. Smoking packs per day: 0.5 Smoking cigarettes per day: 10.0 Years smoked: 37 Smoking pack-years: 18.50 Smoking status: Current every day smoker Tobacco type: cigarettes Second hand tobacco smoke exposure: Yes Alcohol intake: current Drinks per week: 3 Alcohol use details: once year Substance use: former Substance use type: marijuana Other substance usage details: smoked when teenager Lack of Transportation: No Lack of Food: Never True Current Housing: I Have Housing Concerned About Future Housing: No Difficulty Paying Gas/Electric Bills: No Difficulty Paying for Meds: No Currently Unemployed: YES Education: Associate Degree Difficulty w/ Childcare or Family Care: No Spiritual care concerns: No Meds Home Medications and Allergies Home Medications Medication Instructions Recorded Confirmed Type multivitamin-ferrous 1 tablet PO DAILY 10/28/21 05/23/22 History fumarate-folic acid 18 mg-400 mcg tablet (Centrum) potassium citrate 99 mg capsule 99 mg PO DAILY 10/28/21 05/23/22 History valsartan 320 1 tablet PO DAILY #90 tabs 04/20/22 05/23/22 Rx mg-hydrochlorothiazide 25 mg tablet amlodipine 5 mg tablet 5 mg PO DAILY #90 tabs 04/21/22 05/23/22 Rx levetiracetam 500 mg tablet 500 mg PO Q12H #180 tabs 04/21/22 05/23/22 Rx (Keppra) hydralazine 100 mg tablet 100 mg PO BID #180 tabs 05/21/22 05/23/22 Rx Allergies Allergy/AdvReac Type Severity Reaction Status Date / Time paper tape Allergy Mild blisters Uncoded 05/23/22 11:50 Vital Signs Vital Signs - 24 hr 05/23/22 11:01 05/23/22
--- NOTE | 2022-05-23 21:50 | ADMGEN ---
This patient, Giorgio Larose, was admitted to IMU Room 207-01. Patient/family oriented to hospital policies and general routines including ID bracelet, bed and alarms, visiting hours, pain management, procedures, bathroom and other care routines, personal items, smoking policy, room service/diet, and visiting hours. Information on how to activate the Rapid Response Team has been discussed. Patient/Family are encouraged to report perceived risks to care and to ask questions if they do not understand what they are told or what they should do.
[2022-05-24] VITALS (13 sets, daily range): BP systolic 105–160; BP diastolic 78–106; PULSE 74–99; RESP 14–20; TEMP 36.4–37.1; O2SAT 96–100; BMI 41.3
[2022-05-24] MEDS: levETIRAcetam 500 MG TABLET PO ×3 (00:28→20:15)
[2022-05-24] MEDS: hydrALAZINE HCL 50 MG TABLET 100 MG PO ×3 (00:28→20:16)
[2022-05-24] MEDS: MORPHINE SULFATE (*CRX) 4 MG/ML INJ IV PUSH (04:41)
[2022-05-24 04:56] LABS: Hematocrit 37.6 % (37.0-47.0); Mean Corpuscular HGB Conc 31.9 g/dl (32-36); Mean Corpuscular Hemoglobin 27.5 pg (26-34); Mean Corpuscular Volume 86.2 fl (80-100); Mean Platelet Volume 9.1 fl (7.4-10.4); Platelet Count Result 372 k/mm3 (150-375); Red Blood Count 4.36 M/mm3 (4.2-5.4); Red Cell Distribution Width 15.8 % (11.5-14.5); White Blood Count 8.5 K/mm3 (4.5-10.0)
[2022-05-24 05:10] LABS: Anion Gap 4 mmol/L (8-16); Blood Urea Nitrogen 12 mg/dL (7-17); CRP 2.9 mg/dL (<1.0); Carbon Dioxide 29 mmol/L (22-30); Chloride 103 mmol/L (98-107); Estimated CRCL calculation 86 ml/min; Estimated Glomerular Filt Rate > 60; Glucose 112 mg/dL (65-110); Potassium 3.5 mmol/L (3.4-5.0); Sodium 136 mmol/L (137-145)
[2022-05-24 05:55] LABS: Procalcitonin 0.1 ng/mL
[2022-05-24] MEDS: MULTIVITAMINS /C LUTEIN (CENTRUM SILVER) TABLET *BKC 1 TAB PO (08:54)
[2022-05-24] MEDS: hydroCHLOROthiazide 25 MG TABLET PO (08:55)
[2022-05-24] MEDS: amLODIPine BESYLATE 5 MG TABLET PO (08:55)
[2022-05-24] MEDS: ENOXAPARIN 40 MG/0.4 ML SYRINGE SUB-Q (08:56)
[2022-05-24] MEDS: VALSARTAN 160 MG TABLET 320 MG PO (08:56)
--- NOTE | 2022-05-24 11:14 | PM.CNCAR ---
Assessment and Plan Assessment and plan (1) Diastolic congestive heart failure: Code(s): I50.30 - Unspecified diastolic (congestive) heart failure Status: Acute Assessment and Plan: She has CHF which is likely diastolic in etiology. She has marked hypertension which appears to be poorly controlled. Will give a dose of IV furosemide 20 mg x 1 now. Continue valsartan, hydralazine. Will add a beta-thais to her regimen. 2D echocardiogram Doppler will be ordered and reviewed She may transfer off of IMU (2) Chest pain: Code(s): R07.9 - Chest pain, unspecified Status: Acute Assessment and Plan: Chest pain is pleuritic and also reproducible by pushing on her chest. This is noncardiac chest pain. Not related ACS. (3) Hypertension: Code(s): I10 - Essential (primary) hypertension Status: Acute Assessment and Plan: Uncontrolled. Will add metoprolol succinate 25 mg p.o. q.day and up titrate as needed (4) Hypokalemia: Code(s): E87.6 - Hypokalemia Status: Acute Assessment and Plan: KCL 40 mEq p.o. x1 History of Present Illness History of Present Illness Consult date/time: 05/24/22 11:14 Requesting physician: Iva Lao PA-C Consult reason: chest pain Reason For Visit: Chest Pain, Pulmonary Edema Narrative: Date of service 05/24/2022 Requesting provider: Iva Mehta Reason for consultation: Chest pain History patient is a 51-year-old female who has a history of breast cancer, diastolic heart failure, hypertension, history of DVT who has seen Cardiology in [place] but has not routinely followed up with them. She woke up at 2:00 a.m. 2 days ago with severe sharp chest pain. It radiated into left arm. [facility] home was found have some pulmonary edema versus infection. She has been coughing and has been hurting to cough. She has had associated shortness breath. Her symptoms lasted about 10-15 minutes. She came to the hospital for further workup evaluation. Her blood pressure was markedly elevated at presentation. She has reproducible chest wall pain to palpate. Chest x-ray showed edema versus infection as well as elevated BNP. Troponins are negative. She denies any recent syncope, unusual swelling, paroxysmal nocturnal dyspnea, orthopnea, palpitations. Review of Systems Review of Systems: All systems reviewed & are unremarkable except as noted in HPI and below Constitutional: Constitutional: Denies body ache(s) Eyes: Eyes: Denies blurry vision ENT: Denies Normal hearing present Cardiovascular: Cardiovascular: Reports chest pain Respiratory: Respiratory: Reports cough Gastrointestinal: Gastrointestinal: Denies abdominal pain Genitourinary: Genitourinary: Denies hematuria Musculoskeletal: Musculoskeletal: Denies back pain and Denies myalgias Integumentary/Breasts: Skin/Breast: Denies dry skin Neurologic: Denies headache(s) Psychiatric: Psychiatric: Denies anxiety Endocrine: Endocrine: Denies excessive sweating and Denies fatigue Hematologic/Lymphatic: Hematologic/Lymphatic: Denies easy bleeding Allergic/Immunologic: Allergic/Immunologic: Denies GI upset with certain foods PMFSH Past Medical History Medical History Breast cancer (2004) Status post left breast lumpectomy and chemo radiation. Congestive heart failure Deep venous thrombosis Related to Port-A-Cath. Epilepsy Hypertension Kidney stone Surgical History Surgical History History of bilateral breast reduction surgery History of carpal tunnel release History of lumpectomy of left breast Family History Family History Grandparent Cancer Social History Social History Social History: [place]
--- NOTE | 2022-05-24 12:06 | PM.IMPN ---
Progress Note: A&P Assessment and Plan (1) Chest pain: Code(s): R07.9 - Chest pain, unspecified Status: Acute Assessment and Plan: Likely not cardiac. Troponins are negative. (2) Diastolic congestive heart failure: Code(s): I50.30 - Unspecified diastolic (congestive) heart failure Status: Acute Assessment and Plan: Lasix x1. Improved chest pain. Will give additional dose of Lasix. (3) Hypertension: Code(s): I10 - Essential (primary) hypertension Status: Acute Assessment and Plan: Monitor (4) Epilepsy: Code(s): G40.909 - Epilepsy, unspecified, not intractable, without status epilepticus Status: Acute Subjective Date/time seen: 05/24/22 12:06 No new complaints. Chest pain is improved Exam Const: Other: Well-developed, well-nourished female sitting up in bed in no distress. Weight: 127 kilograms. BMI: 41.3. HENMT: Other: Normocephalic, atraumatic. Nares pain bilaterally. Oral mucosa moist. Oropharynx is crowded. Eyes: Other: Pupils are reactive. Extraocular motions intact. Sclerae anicteric. Neck: Other: Supple. Exam limited due to neck circumference. No obvious bruits or JVD. Chest: Other: Reproducible tenderness to palpation diffusely throughout the anterior chest wall. Resp: Other: Respirations are nonlabored. Lung sounds are diminished at the bases due to body habitus but otherwise clear to auscultation. Cardio: Other: Regular rate and rhythm with normal S1-S2. GI: Other: Abdomen is soft, obese, nontender, nondistended with positive bowel sounds. Skin: Other: Warm and dry. Neuro: Other: Alert. Cranial nerves 2-12 are grossly intact. No gross focal deficits to casual conversation. Extrem: Other: No cyanosis or clubbing. Trace pedal edema bilaterally. Negative Fatemeh sign bilaterally. Psych: Other: Pleasant and cooperative. Appropriate mood and affect. Objective Data Vital Signs Vital Signs: Vital Signs - 24 hr 05/23/22 12:38 05/23/22 12:46 05/23/22 14:31 Temperature Pulse Rate 88 86 83 Respiratory Rate 20 18 20 Blood Pressure 178/90 H 189/106 H 155/88 H Pulse Oximetry 99 100 100 Oxygen Delivery 05/23/22 16:29 05/23/22 17:21 05/23/22 18:05 Temperature Pulse Rate 79 87 86 Respiratory Rate 18 18 18 Blood Pressure 171/96 H 169/100 H 157/90 H Pulse Oximetry 98 99 98 Oxygen Delivery 05/23/22 16:00 05/23/22 16:30 05/23/22 18:01 Temperature Pulse Rate 87 79 86 Respiratory Rate 18 20 26 H Blood Pressure 169/104 H 171/96 H 157/90 H Pulse Oximetry 98 97 99 Oxygen Delivery 05/23/22 18:42 05/23/22 18:45 05/23/22 19:00 Temperature Pulse Rate 87 90 86 Respiratory Rate 18 20 20 Blood Pressure 156/95 H 168/93 H Pulse Oximetry 100 100 Oxygen Delivery 05/23/22 19:15 05/23/22 19:16 05/23/22 19:30 Temperature Pulse Rate 90 85 87 Respiratory Rate 19 16 18 Blood Pressure 147/90 H Pulse Oximetry Oxygen Delivery 05/23/22 19:31 05/23/22 19:45 05/23/22 19:46 Temperature Pulse Rate 89 86 84 Respiratory Rate 21 H 20 18 Blood Pressure 145/96 H 169/105 H Pulse Oximetry Oxygen Delivery 05/23/22 20:04 05/23/22 20:16 05/23/22 20:34 Temperature Pulse Rate 86 87 82 Respiratory Rate 25 H 25 H 24 H Blood Pressure Pulse Oximetry 99 95 92 Oxygen Delivery 05/23/22 20:46 05/23/22 21:00 05/23/22 21:15 Temperature Pulse Rate 82 91 87 Respiratory Rate 20 20 22 H Blood Pressure Pulse Oximetry 97 Oxygen Delivery 05/23/22 21:30 05/24/22 00:00 05/24/22 00:00 Temperature 97.9 F Pulse Rate 85 89 89 Respiratory Rate 17 20 20 Blood Pressure 160/106 H Pulse Oximetry 100 100 Oxygen Delivery Room Air 05/24/22 00:00 05/23/22 22:04 05/24/22 02:00 Temperature Pulse Rate 81 90 99 Respiratory Rate Blood Pressure Pulse Oximetry Oxygen Delivery 05/24/22 04:00 05/24/22 04:00 12
[2022-05-24] MEDS: METOPROLOL SUCCINATE EXT REL 25 MG TABCR PO (13:41)
[2022-05-24] MEDS: FUROSEMIDE INJ 40 MG/4 ML VIAL 20 MG IV PUSH (13:41)
[2022-05-24] MEDS: POTASSIUM CHLORIDE 20 MEQ TABLET 40 MEQ PO (13:42)
[2022-05-24] MEDS: ACETAMINOPHEN 325 MG TABLET 650 MG PO (17:00)
--- NOTE | 2022-05-24 23:36 | ECHO_ITS ---
Patient Info Name: Giorgio Larose Age: 51 years : 1970 Gender: Female Ht: 69 in Wt: 279 lbs BSA: 2.54 m2 HR: 92 bpm BP: 105 / 82 mmHg Heart Rhythm: Sinus Rhythm Technical Quality: Fair Exam Date: 05/24/2022 12:56 PM Exam Location: [facility] Patient Status: Outpatient Admit Date: 05/23/2022 Staff Ordering Physician: Chanelle العراقي PA-C Record Changer Assembler: Esha Martinez RDCS Attending Provider: Roberto Dawkins MD Referring Physician: Dulce Maria LEI; Exam Type: CA echo doppler color flow Study Info Indications - HTN, CHF, CHEST PAIN Complete two-dimensional, color flow and Doppler transthoracic echocardiogram is performed. Summary 1. Complete two-dimensional, color flow and Doppler transthoracic echocardiogram is performed. 2. Normal right and left ventricular size and systolic function. 3. Mildly enlarged left atrium. 4. Trivial amounts of mitral, aortic and pulmonic valve regurgitation. Left Ventricle Left ventricular chamber dimension is normal. Left ventricular systolic function is normal, estimated at 60-65%. The left ventricular diastolic function is normal. Right Ventricle Right ventricular chamber dimension is normal. Left Atria Left atrial chamber dimension is mildly enlarged. Right Atria Right atrial chamber dimension is normal. Aortic Valve The aortic valve is normal. There is trace aortic valve regurgitation. Pulmonic Valve The pulmonic valve is normal. There is trace pulmonic regurgitation. Mitral Valve The mitral valve has normal leaflets. There is trace mitral valve regurgitation. Tricuspid Valve The tricuspid valve leaflets are normal. Pericardium/Pleural The pericardium appears normal. Aorta The aortic root size at the sinus of Valsalva is normal. Left Ventricular Outflow Tract Name Value Normal LVOT 2D LVOT Diameter 2.1 cm LVOT Doppler LVOT Peak Gradient 5 mmHg LVOT Mean Gradient 2 mmHg LVOT VTI 18 cm LVOT VTI/AV VTI Ratio 0.6 LVOT Stroke Volume 63 ml LVOT CO 5.0 l/min LVOT CI 2.0 l/min/m2 Pulmonic Valve Name Value Normal RVOT Doppler RVOT Peak Gradient 3 mmHg PV Doppler PV Peak Gradient 8 mmHg Mitral Valve Name Value Normal MV Doppler MV Decel [place] 608 cm/s2
[2022-05-25] VITALS (7 sets, daily range): BP systolic 136–153; BP diastolic 64–94; PULSE 75–84; RESP 18–20; TEMP 36.4–36.8; O2SAT 100
[2022-05-25] MEDS: MULTIVITAMINS /C LUTEIN (CENTRUM SILVER) TABLET *BKC 1 TAB PO (08:30)
[2022-05-25] MEDS: METOPROLOL SUCCINATE EXT REL 25 MG TABCR PO (08:30)
[2022-05-25] MEDS: VALSARTAN 160 MG TABLET 320 MG PO (08:30)
[2022-05-25] MEDS: levETIRAcetam 500 MG TABLET PO (08:31)
[2022-05-25] MEDS: hydrALAZINE HCL 50 MG TABLET 100 MG PO (08:31)
[2022-05-25] MEDS: hydroCHLOROthiazide 25 MG TABLET PO (08:31)
[2022-05-25] MEDS: ENOXAPARIN 40 MG/0.4 ML SYRINGE SUB-Q (08:31)
[2022-05-25] MEDS: amLODIPine BESYLATE 5 MG TABLET PO (08:31)
--- NOTE | 2022-05-25 10:29 | PM.PNCARD ---
Progress Note: A&P Assessment and Plan (1) Diastolic congestive heart failure: Code(s): I50.30 - Unspecified diastolic (congestive) heart failure Status: Acute Assessment and Plan: Improved. No shortness of breath or swelling today. Echo showed normal LV systolic and diastolic function, no significant valve pathology Continue valsartan, hydralazine, metoprolol OK for discharge from a cardiac standpoint (2) Chest pain: Code(s): R07.9 - Chest pain, unspecified Status: Acute Assessment and Plan: Chest pain is pleuritic and also reproducible by pushing on her chest. This is noncardiac chest pain. Not related ACS. (3) Hypertension: Code(s): I10 - Essential (primary) hypertension Status: Acute Assessment and Plan: Somewhat improved (4) Hypokalemia: Code(s): E87.6 - Hypokalemia Status: Acute Subjective Date/time seen: 05/25/22 10:29 Cardiology follow up for CHF Interval history: Feeling better today. No shortness of breath or chest pain. Review of Systems Review of Systems: All systems reviewed & are unremarkable except as noted in HPI and below Constitutional: Constitutional: Denies body ache(s), Denies excessive sweating, Denies fatigue and Denies headache(s) Eyes: Eyes: Denies blurry vision ENT: Denies Normal hearing present and Denies headache(s) Cardiovascular: Cardiovascular: Reports chest pain Respiratory: Respiratory: Reports cough Gastrointestinal: Gastrointestinal: Denies abdominal pain Genitourinary: Genitourinary: Denies hematuria Musculoskeletal: Musculoskeletal: Denies back pain and Denies myalgias Integumentary/Breasts: Skin/Breast: Denies dry skin Neurologic: Denies Normal hearing present and Denies headache(s) Psychiatric: Psychiatric: Denies anxiety Endocrine: Endocrine: Denies excessive sweating and Denies fatigue Hematologic/Lymphatic: Hematologic/Lymphatic: Denies easy bleeding Allergic/Immunologic: Allergic/Immunologic: Denies GI upset with certain foods Exam Narrative: Awake alert oriented appears to be in no acute distress. Appears stated age Const: General: comfortable and no acute distress HENMT: Face/Nose/Sinus: Normal nares present Mouth: Yes moist mucous membranes Eyes: General: appearance normal, both eyes and all related structures Sclera: sclerae normal Neck: Neck: supple Thyroid: abnormal thyroid Carotids: no bruits Chest: Other: Patient has reproducible chest wall pain to palpate Resp: Effort & Inspection: normal respiratory effort Auscultation: clear to auscultation bilaterally Cardio: Rate: regular rate Rhythm: regular rhythm Heart sounds: no murmurs GI: Inspection: non-distended Auscultation: normal bowel sounds Skin: General skin exam: normal color and rashes and/or lesions noted Neuro: General: gait normal Cranial nerves: No Normal hearing present Speech: normal speech Extrem: General: normal to inspection Psych: Mental Status: mental status grossly normal Affect: normal affect Objective Data Vital Signs Vital Signs: Vital Signs - 24 hr 05/24/22 12:00 05/24/22 12:00 05/24/22 14:00 Temperature 37.1 C Pulse Rate 85 79 85 Respiratory Rate 14 Blood Pressure 138/90 Pulse Oximetry 99 Oxygen Delivery 05/24/22 16:00 05/24/22 16:00 05/24/22 18:00 Temperature 36.4 C Pulse Rate 92 83 82 Respiratory Rate 16 Blood Pressure 142/82 H Pulse Oximetry 98 Oxygen Delivery 05/24/22 20:00 05/24/22 23:24 05/25/22 04:00 Temperature 36.4 C L 36.6 C 36.4 C Pulse Rate 81 87 75 Respiratory Rate 20 20 20 Blood Pressure 121/79 137/78 136/64 Pulse Oximetry 98 100 100 Oxygen Delivery 05/24/22 20:00 05/24/22 22:00 05/25/22 00:00 Temperature Pulse Rate 83 84 84 Respiratory Rate Blood Pressure Pulse Oximetry Oxygen Delivery 05/25/22 02:00 05/25/22 04:00 05/24/22 20:00 Temperature Pulse Rate 81 78 R
--- NOTE | 2022-05-25 11:22 | PM.DS ---
DS: Admitting Diagnosis Discharge Date May 25, 2022 Admitting Diagnosis chest pain DS: Discharge Diagnosis Discharge Diagnosis (1) Chest pain: Code(s): R07.9 - Chest pain, unspecified Status: Acute Assessment and Plan: Likely not cardiac. Troponins are negative. (2) Diastolic congestive heart failure: Code(s): I50.30 - Unspecified diastolic (congestive) heart failure Status: Acute Assessment and Plan: Lasix x1. Improved chest pain. Will give additional dose of Lasix. (3) Hypertension: Code(s): I10 - Essential (primary) hypertension Status: Acute Assessment and Plan: Monitor (4) Epilepsy: Code(s): G40.909 - Epilepsy, unspecified, not intractable, without status epilepticus Status: Acute DS: Summary Hospital Course Hospital Course: admitted for chest pain found have some mild volume overload. Lasix was given x1 patient improved significantly. No more chest pain workup otherwise unrevealing. Patient can be discharged Time Spent with Patient Time attestation: Total time spent providing and/or coordinating discharge services: Exam Const: Other: Well-developed, well-nourished female sitting up in bed in no distress. Weight: 127 kilograms. BMI: 41.3. HENMT: Other: Normocephalic, atraumatic. Nares pain bilaterally. Oral mucosa moist. Oropharynx is crowded. Eyes: Other: Pupils are reactive. Extraocular motions intact. Sclerae anicteric. Neck: Other: Supple. Exam limited due to neck circumference. No obvious bruits or JVD. Chest: Other: Reproducible tenderness to palpation diffusely throughout the anterior chest wall. Resp: Other: Respirations are nonlabored. Lung sounds are diminished at the bases due to body habitus but otherwise clear to auscultation. Cardio: Other: Regular rate and rhythm with normal S1-S2. GI: Other: Abdomen is soft, obese, nontender, nondistended with positive bowel sounds. Skin: Other: Warm and dry. Neuro: Other: Alert. Cranial nerves 2-12 are grossly intact. No gross focal deficits to casual conversation. Extrem: Other: No cyanosis or clubbing. Trace pedal edema bilaterally. Negative Fatemeh sign bilaterally. Psych: Other: Pleasant and cooperative. Appropriate mood and affect. Discharge Plan Discharge Attending physician on discharge: Wicho Lyle Consulting providers: Karen Wynn ; Iva Lao Discharging Clinician: Wicho Lyle Patient Disposition: Home, Self-Care Activity: no preference Diet: as tolerated Patient Instructions: Antibiotic Form, Heart Failure (DC), Chest Pain (DC), How to Stop Smoking (GEN), Pain Management (DC) Stand Alone Forms: General Discharge Information Follow-up/Referrals: Myron Lomeli, [Primary Care Provider] - Discharge Medications: Continued potassium citrate 99 mg capsule 99 mg PO DAILY Centrum 18-400 mg-mcg tablet 1 tablet PO DAILY valsartan-hydrochlorothiazide 320-25 mg tablet 1 tablet PO DAILY Qty: 90 1RF hydralazine 100 mg tablet 100 mg PO BID Qty: 180 0RF amlodipine 5 mg tablet 5 mg PO DAILY Qty: 90 1RF levetiracetam [Keppra] 500 mg tablet 500 mg PO Q12H Qty: 180 0RF Date of admission: 05/23/22 17:57 Primary Care Provider: Myron Lomeli Admitting Provider: Roberto Dawkins Attending physician on admission: Roberto Dawkins Condition: Stable
== END 2022-05-25 12:39 | disposition home or self-care (01) ==
LOC: ANHED 17:59 → ANHIMU 20:26
PROVIDERS: Physician Assistant; Admitting Provider Internal Medicine; Emergency Provider Emergency Medicine; PCP Internal Medicine; Visit Provider Chiropractor
DX: R07.9 Chest pain, unspecified (principal); I11.0 Hypertensive heart disease with heart failure; I50.30 Unspecified diastolic (congestive) heart failure; G40.909 Epilepsy, unspecified, not intractable, without status epilepticus; R91.8 Other nonspecific abnormal finding of lung field; R94.31 Abnormal electrocardiogram [ECG] [EKG]; Z20.822 Contact with and (suspected) exposure to COVID-19; Z79.899 Other long term (current) drug therapy; Z86.718 Personal history of other venous thrombosis and embolism; F17.210 Nicotine dependence, cigarettes, uncomplicated; F10.90 Alcohol use, unspecified, uncomplicated; Z85.3 Personal history of malignant neoplasm of breast
CPT/HCPCS: 36415; 71046; 71275; 80048; 80053; 81025; 83690; 83735; 83880; 84145; 84443; 84484; 85025; 85027; 85380; 85610; 85730; 86140; 87636; 93005; 93306; 96365; 96366; 96367; 96372; 96374; 96375; 99285; A9270; G0378; G0379; J0696; J1650; J1940; J1953; J2060; J2270; Q9967

== ENCOUNTER 2022-06-27 15:25 | Emergency (ER) | payer OTHER, SELFPAY ==
[2022-06-27 15:31] VITALS: BP 197/113; PULSE 93; RESP 18; TEMP 36.3; O2SAT 100
--- NOTE | 2022-06-27 15:52 | ED.DENTAL ---
HPI - Dental/Oral General Chief complaint: Dental/Oral Stated complaint: Dental Pain Time Seen by Provider: 06/27/22 15:52 Source: patient Mode of arrival: ambulatory Limitations: no limitations History of Present Illness HPI Narrative: 51 yo F presents with c/o L upper dental pain for several days. Pt reports hx of same pain. States that she has bad teeth because her mom never took her to the dentist. Afebrile. does not have a dentist. All systems reviewed and negative except as noted above. Related Data Home Medications Medication Instructions Recorded Confirmed losartan 100 mg tablet mg 06/27/22 06/27/22 Allergies Allergy/AdvReac Type Severity Reaction Status Date / Time paper tape Allergy Mild blisters Uncoded 06/27/22 15:30 Review of Systems Review of Systems: CONSTITUTIONAL: Denies fever, chills, or sweats. EYES: Denies visual changes, redness, or discharge. ENT: Denies rhinorrhea, congestion, sore throat, or otalgia. reports dental pain. CARDIOVASCULAR: Denies chest pain, palpitations, or edema. RESPIRATORY: Denies cough or dyspnea. GASTROINTESTINAL: Denies abdominal pain, nausea, vomiting, or diarrhea. GENITOURINARY: Denies dysuria or hematuria. SKIN: Denies rash or itching. MUSCULOSKELETAL: Denies back pain, joint pain, or myalgia. NEUROLOGIC: Denies headache, numbness, or weakness. PSYCHIATRIC: Denies anxiety or depression. All other systems reviewed are negative, except as documented in HPI. [facility] Past Medical History Medical History Breast cancer (2004) Status post left breast lumpectomy and chemo radiation. Congestive heart failure Deep venous thrombosis Related to Port-A-Cath. Epilepsy Hypertension Kidney stone Surgical History Surgical History History of bilateral breast reduction surgery History of carpal tunnel release History of lumpectomy of left breast Family History Family History Grandparent Cancer Social History Social History Social History: Surrogate medical decision maker: Adán Scott, mother. Code status: Full code. Smoking packs per day: 0.5 Smoking cigarettes per day: 10.0 Years smoked: 37 Smoking pack-years: 18.50 Smoking status: Current every day smoker Tobacco type: cigarettes Second hand tobacco smoke exposure: Yes Alcohol intake: current Drinks per week: 3 Alcohol use details: once year Substance use: former Substance use type: marijuana Other substance usage details: smoked when teenager Lack of Transportation: No Lack of Food: Never True Current Housing: I Have Housing Concerned About Future Housing: No Difficulty Paying Gas/Electric Bills: No Difficulty Paying for Meds: No Currently Unemployed: YES Education: Associate Degree Difficulty w/ Childcare or Family Care: No Living arrangements: with family Spiritual care concerns: No Comments At time of signature, agree with nursing past medical, surgical, social and family history. There is no relevant family history pertinent to the presenting complaint. Exam Narrative: GENERAL: This is a well-nourished, well-developed patient, in no apparent distress. HEAD: normocephalic, atraumatic. EYES: PERRL. Sclera clear/white. Vision is grossly intact. EARS: External ears normal NOSE: External nose normal MOUTH: multiple broken and rotten teeth. pt c/o pain to 10th and 11th teeth which are broken down to gumline with erythema. no fluctuance concerning for abscess. NECK: Neck supple, non-tender without lymphadenopathy, masses or thyromegaly. CARDIOVASCULAR: Regular rate RESPIRATORY: Normal rate SKIN: warm, Dry, intact with no suspicious lesions or rash, good texture and turgor. NEURO: awake, alert, and oriented to person, place an
== END 2022-06-27 16:02 | disposition home or self-care (01) ==
PROVIDERS: Emergency Provider Nurse Practitioner Family; PCP Internal Medicine
DX: K04.7 Periapical abscess without sinus (principal); K08.9 Disorder of teeth and supporting structures, unspecified; F17.210 Nicotine dependence, cigarettes, uncomplicated; I11.0 Hypertensive heart disease with heart failure; I50.9 Heart failure, unspecified; Z86.718 Personal history of other venous thrombosis and embolism; Z85.3 Personal history of malignant neoplasm of breast; Z92.3 Personal history of irradiation; Z92.21 Personal history of antineoplastic chemotherapy
CPT/HCPCS: 99213; G0463

== ENCOUNTER 2022-07-10 07:30 | Inpatient (IN) | payer OTHER, SELFPAY ==
[2022-07-10] VITALS (10 sets, daily range): BP systolic 134–214; BP diastolic 89–133; PULSE 77–111; RESP 18–27; TEMP 36.2–36.4; O2SAT 95–100; BMI 43.0
--- NOTE | ~2022-07-10 | CT_ITS ---
EXAMINATION: CT abdomen pelvis wo con DATE: 07/12/2022 13:18 INDICATION: Bilateral flank pain. TECHNIQUE: Computed tomography (CT) of the abdomen and pelvis was performed without intravenous contr ast. Automated exposure control and iterative reconstruction technique were employed. The dose-length product was 1438.64 mGy-cm. COMPARISON: Chest CT 05/23/2022 FINDINGS: The visualized portions of the lung bases demonstrate groundglass opacities and septal thic kening, consistent with pulmonary edema. No pleural effusion. There is a left breast implant. Cardiom egaly is noted. No pericardial effusion. There is diffuse hepatic steatosis. The gallbladder is absen t. The spleen, pancreas, adrenal glands, and kidneys are normal. There is no urolithiasis. There are no dilated loops of bowel. The appendix is not visualized. There are no pathologically enlarged lymph nodes. There is no free intraperitoneal fluid. There is mild thoracolumbar spondylosis. IMPRESSION: 1. No urolithiasis. 2. Mild pulmonary edema. 3. Diffuse hepatic steatosis. Reviewed, dictated and finalized at location A. [employer]
--- NOTE | ~2022-07-10 | XR_ITS ---
EXAMINATION: XR chest 2V DATE: 07/10/2022 08:23 INDICATION: Shortness of breath, fluid overload TECHNIQUE: 05/23/2022 COMPARISON: None available FINDINGS: There are moderate interstitial and airspace opacities with a mid and lower lung zone predo minance No pleural effusion or pneumothorax. The cardiomediastinal silhouette is normal. There is mil d thoracic spondylosis. There are surgical clips in the left axilla. There appear to be changes of pa rtial left mastectomy. IMPRESSION: 1. Interstitial and airspace opacities with a mid and lower lung zone predominance, consistent with p neumonia versus pulmonary edema. Reviewed, dictated and finalized at location A. [facility] HELPER IMPRESSION: 1. Interstitial and airspace opacities with a mid and lower lung zone predomina nce, consistent with pneumonia versus pulmonary edema.
--- NOTE | 2022-07-10 07:37 | ECG_ITS ---
Measurements Intervals [place] Rate: 105 P: 56 CA: 188 QRS: -37 QRSD: 122 T: 95 QT: 430 QTc: 569 Interpretive Statements SINUS TACHYCARDIA POSSIBLE LEFT ATRIAL ENLARGEMENT [-0.1mV P-WAVE IN V1/V2] LEFT AXIS DEVIATION [QRS AXIS < -30] LEFT VENTRICULAR HYPERTROPHY AND ST-T CHANGE [VOLTAGE CRITERIA PLUS ST/T ABNORMALITY] POSSIBLE SEPTAL MYOCARDIAL INFARCTION , PROBABLY OLD [30 ms Q WAVE IN V1/V2] ABNORMAL ECG COMPARED TO ECG 05/23/2022 11:11:21 [address]CARDIA NOW PRESENT ST (T WAVE) DEVIATION NOW PRESENT Electronically Signed On 07-10-2022 12:48:47 [employer]EMENT [employer] by Eric Mancera M.D.
--- NOTE | 2022-07-10 07:48 | ED.SOB ---
HPI - SOB/Dyspnea General Chief Complaint: Shortness of Breath/Dyspnea Stated Complaint: diff breathing/vomiting Time Seen by Provider: 07/10/22 07:41 History of Present Illness HPI Narrative: Patient with history of congestive heart failure, bronchitis, has been having cough since Tuesday, and increased shortness of breath that has been worsening. She states that she also feels like her leg swelling with her socks feeling tight, she used to be on Lasix but her doctor took her off of it and then retired. Worse when laying flat. Related Data Home Medications Medication Instructions Recorded Confirmed losartan 100 mg tablet 100 mg PO DAILY 06/27/22 07/10/22 Allergies Allergy/AdvReac Type Severity Reaction Status Date / Time paper tape Allergy Mild blisters Uncoded 07/10/22 08:00 Review of Systems Review of Systems: CONST: No fever. HEENT: No sore throat C/V: No chest pain RESP: Cough and shortness of breath GI: No abdominal pain : No dysuria. M/S: Bilateral lower extremity edema SKIN: No rash. NEURO: [No headache or focal numbness or weakness] PSYCH: [No depression] [facility] Past Medical History Medical History (Updated 07/10/22 @ 15:27 by Irene Dockery MD) Breast cancer (2004) Status post left breast lumpectomy and chemo radiation. Congestive heart failure 1. Complete two-dimensional, color flow and Doppler transthoracic echocardiogram is performed. 2. Normal right and left ventricular size and systolic function. 3. Mildly enlarged left atrium. 4. Trivial amounts of mitral, aortic and pulmonic valve regurgitation. Deep venous thrombosis Related to Port-A-Cath. Epilepsy Hypertension Kidney stone Surgical History Surgical History History of bilateral breast reduction surgery History of carpal tunnel release History of lumpectomy of left breast Family History Family History Grandparent Cancer Heart disease Father Heart disease Mother Diabetes mellitus Social History Social History (Updated 07/10/22 @ 14:32 by Ashley Vargas NP) Social History: The patient is single and has 3 children. She lives with her daughter. She is not currently employed. She smokes less than half a pack a cigarettes a day. Surrogate medical decision maker: Adán Scott, mother. Code status: Full code. Smoking packs per day: 0.3 Smoking cigarettes per day: 6.0 Years smoked: 37 Smoking pack-years: 11.10 Smoking status: Current every day smoker Tobacco type: cigarettes Second hand tobacco smoke exposure: Yes Alcohol intake: never Drinks per week: 3 Alcohol use details: once year Substance use: never Substance use type: does not use Other substance usage details: smoked when teenager Lack of Transportation: No Lack of Food: Never True Current Housing: I Have Housing Concerned About Future Housing: No Difficulty Paying Gas/Electric Bills: No Difficulty Paying for Meds: No Currently Unemployed: No Education: High School Diploma/GED Difficulty w/ Childcare or Family Care: No Living arrangements: with family Spiritual care concerns: No Exam Narrative: EXAMINATION OF ORGAN SYSTEMS/BODY AREAS: Constitutional: Vital signs per nursing GENERAL: Some difficulty breathing HEAD: Normal with no signs of head trauma. EYES: EOMI, conjunctiva normal ENT: Hearing grossly intact LUNGS: Tachypnea with some labored respirations HEART: Tachycardic ABD: [Soft], [nontender to palpation] EXT: Normal range of motion, bilateral lower extremity edema SKIN: [No rashes or lesions.] NEURO: [Alert and oriented x 3. No gross focal sensory or strength deficits.] PSYCH: Normal affect Course Vital Signs Vital signs: Vital Signs Temperature 97.5 F L 07/10/22 07:37 Pulse Rate 111 H 07/10/22 07:37 Respiratory Rate 18 07/10/22 07:37 Blood Pressure 2
[2022-07-10 08:34] LABS: Influenza A QL RT-PCR Negative (Negative); Influenza B QL RT-PCR Negative (Negative); RSV RNA, RT-PCR Negative (Negative); SARS-CoV-2 RNA PCR Negative
[2022-07-10] MEDS: FUROSEMIDE INJ 40 MG/4 ML VIAL IV PUSH (09:18)
[2022-07-10 09:22] LABS: Basophils Percent Auto 0.3 % (0.2-1.2); Eosinophils Absolute Auto 0.1 K/mm3 (0-0.3); Eosinophils Percent Auto 0.6 % (0-4.4); Hemoglobin 11.1 g/dL (12.0-15.0); Immature Granulocyte Absolute 0.05 K/mm3 (0.00-0.031); Immature Granulocyte Percent A 0.4 % (0-0.5); Lymphocytes Absolute Auto 1.47 K/mm3 (0.9-3.2); Lymphocytes Percent Auto 12.7 % (18.3-44.2); Mean Corpuscular HGB Conc 31.7 g/dl (32-36); Mean Corpuscular Hemoglobin 27.2 pg (26-34); Mean Corpuscular Volume 85.8 fl (80-100); Mean Platelet Volume 8.8 fl (7.4-10.4); Monocytes Absolute Auto 0.5 K/mm3 (0.1-0.6); Monocytes Percent Auto 4.2 % (2.6-8.5); Neutrophils Absolute Auto 9.5 K/mm3 (1.3-6.7); Neutrophils Percent Auto 81.8 % (45.5-73.1); Platelet Count Result 420 k/mm3 (150-375); Red Blood Count 4.08 M/mm3 (4.2-5.4); White Blood Count 11.6 K/mm3 (4.5-10.0)
[2022-07-10 09:34] LABS: Alanine Aminotransferase 24 U/L (6-35); Albumin Level 3.9 g/dL (3.5-5.1); Alkaline Phosphatase 114 U/L (38-126); Anion Gap 5 mmol/L (8-16); Aspartate Amino Transferase 27 U/L (14-36); Bilirubin,Total 0.7 mg/dL (0.2-1.3); Blood Urea Nitrogen 11 mg/dL (7-17); Calcium 8.7 mg/dL (8.4-10.2); Carbon Dioxide 27 mmol/L (22-30); Chloride 106 mmol/L (98-107); Estimated CRCL calculation 105 ml/min; Estimated Glomerular Filt Rate > 60; Glucose 106 mg/dL (65-110); Potassium 3.5 mmol/L (3.4-5.0); Sodium 138 mmol/L (137-145)
[2022-07-10 09:44] LABS: NT Pro B Type Natriuretic Pept 3930 pg/mL (19.9-100); Troponin I < 0.012 ng/mL (0.000-0.034)
--- NOTE | 2022-07-10 13:13 | ADMGEN ---
This patient, Giorgio Larose, was admitted to [facility] Room 309-01 at 1230. Patient/family oriented to hospital policies and general routines including ID bracelet, bed and alarms, visiting hours, pain management, procedures, bathroom and other care routines, personal items, smoking policy, room service/diet, and visiting hours. Information on how to activate the Rapid Response Team has been discussed. Patient/Family are encouraged to report perceived risks to care and to ask questions if they do not understand what they are told or what they should do.
--- NOTE | 2022-07-10 13:29 | PM.IMHP ---
H&P: HPI History of Present Illness Date/Time: 07/10/22 13:29 Chief Complaint: Shortness of breath Narrative: This is a 51-year-old female patient has a history of congestive heart failure. The patient still continues to smoke. The patient stated that she was having a cough since this past Tuesday and increased shortness of breath. The patient stated that she had been prescribed Lasix at 1 time but her doctor took her off of it and then retired. Patient has shortness of breath that is worse when lying flat. She also has leg swelling and feels like her socks are tight. Patient had an echo on 05/24/2022 which was read as the following 1. Complete two-dimensional, color flow and Doppler transthoracic echocardiogram is performed. ? 2. Normal right and left ventricular size and systolic function. ? 3. Mildly enlarged left atrium. ? 4. Trivial amounts of mitral, aortic and pulmonic valve regurgitation. Her white count 11.6. H&H is 11.1 and 35.0. The patient is currently on room air. Troponin is nonreactive. BNP 3930. She is negative for influenza A/B RSV and COVID. Chest x-ray was read as interstitial and airspace opacities with mild and lower lung zone predominance, consistent with pneumonia versus pulmonary edema. The patient was given IV Lasix in the emergency room. The patient is being placed in observation status on the date of service of 07/10/2022 Review of Systems Review of Systems: See HPI All systems reviewed & are unremarkable except as noted in HPI and below Constitutional: Constitutional: Reports as per HPI and Reports no additional constitutional complaints Eyes: Eyes: Reports as per HPI and Reports no additional eye complaints ENT: Reports system reviewed and no additional complaints, except as documented and Reports Normal hearing present Cardiovascular: Cardiovascular: Reports no additional cardiovascular complaints Respiratory: Respiratory: Reports no additional respiratory complaints and Reports no additional respiratory complaints Gastrointestinal: Gastrointestinal: Reports as per HPI and Reports no additional gastrointestinal complaints Musculoskeletal: Musculoskeletal: Reports no additional musculoskeletal complaints Integumentary/Breasts: Skin/Breast: Reports system reviewed and no additional complaints, except as docu and Reports as per HPI Neurologic: Reports system reviewed and no additional complaints, except as documented, Reports as per HPI and Reports Normal hearing present Psychiatric: Psychiatric: Reports no additional psychiatric complaints and Reports as per HPI Endocrine: Endocrine: Reports no additional endocrine complaints Hematologic/Lymphatic: Hematologic/Lymphatic: Reports no additional hematologic/lymphatic complaints Allergic/Immunologic: Allergic/Immunologic: Reports no additional allergic/immunologic complaints [facility] Past Medical History Medical History (Updated 07/10/22 @ 14:32 by Ashley Vargas NP) Breast cancer (2004) Status post left breast lumpectomy and chemo radiation. Congestive heart failure 1. Complete two-dimensional, color flow and Doppler transthoracic echocardiogram is performed. 2. Normal right and left ventricular size and systolic function. 3. Mildly enlarged left atrium. 4. Trivial amounts of mitral, aortic and pulmonic valve regurgitation. Deep venous thrombosis Related to Port-A-Cath. Epilepsy Hypertension Kidney stone Surgical History Surgical History History of bilateral breast reduction surgery History of carpal tunnel release History of lumpectomy of left breast Family History Family History Grandparent Cancer Heart disease Father Heart disease Mother Diabetes mellitus Social History Social History (Updated 07/10/22 @ 14:32 by Ashley Vargas NP) Social History: The patient is single and has 3 children. She li
[2022-07-10] MEDS: levETIRAcetam 500 MG TABLET PO (21:18)
[2022-07-11 08:11] LABS: Basophils Percent Auto 0.5 % (0.2-1.2); Eosinophils Absolute Auto 0.2 K/mm3 (0-0.3); Eosinophils Percent Auto 3.4 % (0-4.4); Hematocrit 36.2 % (37.0-47.0); Hemoglobin 11.2 g/dL (12.0-15.0); Immature Granulocyte Absolute 0.02 K/mm3 (0.00-0.031); Immature Granulocyte Percent A 0.3 % (0-0.5); Lymphocytes Absolute Auto 2.44 K/mm3 (0.9-3.2); Lymphocytes Percent Auto 40.9 % (18.3-44.2); Mean Corpuscular HGB Conc 30.9 g/dl (32-36); Mean Corpuscular Hemoglobin 26.7 pg (26-34); Mean Corpuscular Volume 86.2 fl (80-100); Mean Platelet Volume 9.4 fl (7.4-10.4); Monocytes Absolute Auto 0.4 K/mm3 (0.1-0.6); Monocytes Percent Auto 6.7 % (2.6-8.5); Neutrophils Absolute Auto 2.9 K/mm3 (1.3-6.7); Neutrophils Percent Auto 48.2 % (45.5-73.1); Platelet Count Result 400 k/mm3 (150-375)
[2022-07-11 08:27] LABS: Alanine Aminotransferase 20 U/L (6-35); Albumin Level 3.9 g/dL (3.5-5.1); Alkaline Phosphatase 107 U/L (38-126); Anion Gap 4 mmol/L (8-16); Aspartate Amino Transferase 21 U/L (14-36); Bilirubin,Total 0.8 mg/dL (0.2-1.3); Blood Urea Nitrogen 11 mg/dL (7-17); Calcium 8.8 mg/dL (8.4-10.2); Carbon Dioxide 30 mmol/L (22-30); Chloride 101 mmol/L (98-107); Estimated CRCL calculation 94 ml/min; Estimated Glomerular Filt Rate > 60; Glucose 94 mg/dL (65-110); Magnesium 2.1 mg/dL (1.6-2.3); Potassium 3.1 mmol/L (3.4-5.0); Sodium 135 mmol/L (137-145)
[2022-07-11] MEDS: IBUPROFEN 400 MG TABLET 800 MG PO (09:08)
[2022-07-11] MEDS: FUROSEMIDE INJ 40 MG/4 ML VIAL 20 MG IV PUSH ×2 (09:09→18:01)
[2022-07-11] MEDS: ENOXAPARIN 40 MG/0.4 ML SYRINGE SUB-Q (09:09)
[2022-07-11] MEDS: levETIRAcetam 500 MG TABLET PO ×2 (09:09→22:03)
[2022-07-11] MEDS: LOSARTAN POTASSIUM 100 MG TABLET PO (11:41)
--- NOTE | 2022-07-11 11:43 | PM.IMPN ---
Progress Note: A&P Assessment and Plan (1) Congestive heart failure: Code(s): I50.9 - Heart failure, unspecified Status: Acute Assessment and Plan: Patient states she has diagnosis with congestive heart failure approximately 3 years ago. Patient presented with shortness of breath and edema. Last echo in May of last year showed normal right and left ventricular size, normal systolic function, mildly enlarged left atrium, trivial amounts of mitral, aortic and pulmonic valve regurg, EF of 60-65%, normal diastolic function. Patient given 1 dose of Lasix in the ED. Continue IV Lasix 20 mg b.i.d. 20 mEq potassium daily 1000 mL fluid restriction Continue losartan 100 mg Add metoprolol 25 mg b.i.d. Low-salt diet (2) Epilepsia: Code(s): G40.909 - Epilepsy, unspecified, not intractable, without status epilepticus Status: Acute Assessment and Plan: Continue with Keppra (3) Hypertension: Code(s): I10 - Essential (primary) hypertension Status: Acute Assessment and Plan: Continue with losartan Time Spent With Patient Time with patient: 25 - 35 minutes Subjective Date/time seen: 07/11/22 11:43 Interval history: 51-year-old female that presents to the ED on 07/10/2022 with history of cough, shortness of breath, orthopnea and bilateral lower extremity edema. Patient has a history of CHF, DVT hypertension and epilepsy. Chest x-ray consistent with pneumonia versus pulmonary edema. Patient states that shortness of breath started on 07/09/2022. Patient given dose of Lasix in the ED and symptoms improved. Patient today patient had +2 edema bilaterally on the feet, improved shortness of breath, and improved cough. Patient now able to lay on her back without becoming short of breath. Patient denies chest pain. Review of Systems Review of Systems: All systems reviewed & are unremarkable except as noted in HPI and below Exam Narrative: GENERAL: Comfortable, no acute distress HENMT: moist mucous membranes EYES: EOM intact b/l NECK: no lymphadenopathy RESPIRATORY: clear to auscultation CARDIO: RRR GI: soft, nontender, bowel sounds present SKIN: no rashes EXTREMITIES: +2 pitting edema over feet, dorsalis pedis pulses +2, redness or tenderness Objective Data Vital Signs Vital Signs: Vital Signs - 24 hr 07/10/22 12:04 07/10/22 12:17 07/10/22 13:56 Temperature 97.1 F L Pulse Rate 92 80 84 Respiratory Rate 18 18 20 Blood Pressure 192/133 H 134/92 H 156/89 H Pulse Oximetry 98 100 98 Oxygen Delivery 07/10/22 22:00 07/10/22 20:00 Temperature 97.2 F L Pulse Rate 77 Respiratory Rate 20 Blood Pressure 165/90 H Pulse Oximetry 99 Oxygen Delivery Room Air Intake/Output Intake/Output: Intake & Output 07/08/22 07/09/22 07/10/22 07/11/22 23:59 23:59 23:59 23:59 Intake Total 666 700 Output Total 750 700 Balance -84 0 Meds/Results Medications: Active Medications Generic Name Dose Route Start Last Admin Trade Name Freq PRN Reason Stop Dose Admin Enoxaparin Sodium 40 mg 07/11/22 09:00 07/11/22 09:09 Enoxaparin 40 Mg/0.4 Ml Syringe SUB-Q 40 mg DAILY SHELL Administration Furosemide 20 mg 07/11/22 17:00 Furosemide Inj 40 Mg/4 Ml Vial IV PUSH BID SHELL Ibuprofen 800 mg 07/10/22 14:33 07/11/22 09:08 Ibuprofen 400 Mg Tablet PO 800 mg TID PRN Administration pain Levetiracetam 500 mg 07/10/22 21:00 07/11/22 09:09 Levetiracetam 500 Mg Tablet PO 500 mg Q12HR SHELL Administration Losartan Potassium 100 mg 07/11/22 09:00 07/11/22 11:41 Losartan Potassium 100 Mg Tablet PO 100 mg DAILY SHELL Administration Potassium Chloride 40 meq 07/11/22 11:41 Potassium Chloride 20 Meq Packet (For Liquid) PO 07/11/22 11:42 ONCE ONE Potassium Chloride 20 meq 07/12/22 09:00 Potassium Chloride 20 Meq Packet (For Liquid) PO DAILY SHELL Radiology Re
[2022-07-11] MEDS: POTASSIUM CHLORIDE 20 MEQ PACKET (FOR LIQUID) 40 MEQ PO (12:49)
[2022-07-11 13:43] VITALS: BP 149/93; PULSE 74; RESP 20; TEMP 36.4; O2SAT 98
[2022-07-11 21:33] VITALS: BP 155/87; PULSE 79; RESP 14; TEMP 36.2; O2SAT 95
[2022-07-11 22:03] VITALS: PULSE 85
[2022-07-11] MEDS: METOPROLOL TARTRATE 25 MG TABLET PO (22:03)
[2022-07-12 06:00] VITALS: BP 149/94; PULSE 71; RESP 14; TEMP 36.1; O2SAT 100
[2022-07-12 06:33] LABS: Alanine Aminotransferase 18 U/L (6-35); Albumin Level 3.9 g/dL (3.5-5.1); Alkaline Phosphatase 99 U/L (38-126); Anion Gap 3 mmol/L (8-16); Aspartate Amino Transferase 17 U/L (14-36); Bilirubin,Total 0.6 mg/dL (0.2-1.3); Blood Urea Nitrogen 16 mg/dL (7-17); Calcium 8.8 mg/dL (8.4-10.2); Carbon Dioxide 29 mmol/L (22-30); Chloride 101 mmol/L (98-107); Estimated CRCL calculation 85 ml/min; Estimated Glomerular Filt Rate > 60; Glucose 97 mg/dL (65-110); Magnesium 2.2 mg/dL (1.6-2.3); Potassium 3.2 mmol/L (3.4-5.0); Sodium 133 mmol/L (137-145)
[2022-07-12 06:34] LABS: Basophils Percent Auto 0.5 % (0.2-1.2); Eosinophils Absolute Auto 0.2 K/mm3 (0-0.3); Eosinophils Percent Auto 3.2 % (0-4.4); Hematocrit 35.2 % (37.0-47.0); Hemoglobin 11.1 g/dL (12.0-15.0); Immature Granulocyte Absolute 0.01 K/mm3 (0.00-0.031); Immature Granulocyte Percent A 0.2 % (0-0.5); Lymphocytes Absolute Auto 2.67 K/mm3 (0.9-3.2); Lymphocytes Percent Auto 42.7 % (18.3-44.2); Mean Corpuscular HGB Conc 31.5 g/dl (32-36); Mean Corpuscular Hemoglobin 26.8 pg (26-34); Mean Platelet Volume 9.4 fl (7.4-10.4); Monocytes Absolute Auto 0.5 K/mm3 (0.1-0.6); Monocytes Percent Auto 8.2 % (2.6-8.5); Neutrophils Absolute Auto 2.8 K/mm3 (1.3-6.7); Neutrophils Percent Auto 45.2 % (45.5-73.1); Platelet Count Result 390 k/mm3 (150-375); Red Blood Count 4.14 M/mm3 (4.2-5.4); Red Cell Distribution Width 15.6 % (11.5-14.5); White Blood Count 6.3 K/mm3 (4.5-10.0)
[2022-07-12] MEDS: ENOXAPARIN 40 MG/0.4 ML SYRINGE SUB-Q (09:13)
[2022-07-12] MEDS: levETIRAcetam 500 MG TABLET PO (09:13)
[2022-07-12 09:14] VITALS: PULSE 74
[2022-07-12] MEDS: METOPROLOL TARTRATE 25 MG TABLET PO ×2 (09:14→20:26)
[2022-07-12] MEDS: FUROSEMIDE INJ 40 MG/4 ML VIAL 20 MG IV PUSH ×2 (09:14→16:51)
[2022-07-12] MEDS: LOSARTAN POTASSIUM 100 MG TABLET PO (09:14)
[2022-07-12] MEDS: POTASSIUM CHLORIDE 20 MEQ TABLET PO (10:14)
[2022-07-12] MEDS: POTASSIUM CHLORIDE 20 MEQ TABLET.ER PO (10:14)
[2022-07-12 11:22] VITALS: BMI 43.0
[2022-07-12 12:22] LABS: Potassium 3.9 mmol/L (3.4-5.0)
--- NOTE | 2022-07-12 12:29 | PM.IMPN ---
Progress Note: A&P Assessment and Plan (1) Congestive heart failure: Code(s): I50.9 - Heart failure, unspecified Status: Acute Assessment and Plan: Patient states she has diagnosis with congestive heart failure approximately 3 years ago. Patient presented with shortness of breath and edema. Last echo in May of last year showed normal right and left ventricular size, normal systolic function, mildly enlarged left atrium, trivial amounts of mitral, aortic and pulmonic valve regurg, EF of 60-65%, normal diastolic function. Patient given 1 dose of Lasix in the ED. Continue IV Lasix 20 mg b.i.d. 20 mEq potassium daily 1500 mL fluid restriction Continue losartan 100 mg Add metoprolol 25 mg b.i.d. Low-salt diet (2) Epilepsia: Code(s): G40.909 - Epilepsy, unspecified, not intractable, without status epilepticus Status: Acute Assessment and Plan: Continue with Keppra (3) Hypertension: Code(s): I10 - Essential (primary) hypertension Status: Acute Assessment and Plan: Continue with losartan (4) Flank pain: Code(s): R10.9 - Unspecified abdominal pain Status: Acute Assessment and Plan: Patient experiencing bilateral flank pain with positive CVA tenderness. Analgesics as needed CT abdomen pelvis ordered UA ordered Time Spent With Patient Time with patient: 25 - 35 minutes Subjective Date/time seen: 07/12/22 12:29 Interval history: Patient doing well today. Patient states that she has developed bilateral flank pain. Denies urinary symptoms such as urgency frequency and burning. Patient does have some positive CVA tenderness. Shortness of breath has improved. Orthopnea improved. Denies nausea vomiting and fever. Review of Systems Review of Systems: All systems reviewed & are unremarkable except as noted in HPI and below Exam Narrative: GENERAL: Comfortable, no acute distress HENMT: moist mucous membranes EYES: EOM intact b/l NECK: no lymphadenopathy RESPIRATORY: clear to auscultation CARDIO: RRR GI: soft, nontender, bowel sounds present SKIN: no rashes EXTREMITIES: +2 pitting edema over feet, dorsalis pedis pulses +2, redness or tenderness, improved from admission Objective Data Vital Signs Vital Signs: Vital Signs - 24 hr 07/11/22 13:43 07/11/22 21:33 07/11/22 22:03 Temperature 97.5 F L 97.2 F L Pulse Rate 74 79 85 Respiratory Rate 20 14 Blood Pressure 149/93 H 155/87 H Pulse Oximetry 98 95 Oxygen Delivery Fraction of Inspired Oxygen 07/11/22 20:00 07/12/22 06:00 07/12/22 09:14 Temperature 96.9 F L Pulse Rate 71 74 Respiratory Rate 14 Blood Pressure 149/94 H Pulse Oximetry 100 Oxygen Delivery Room Air Fraction of Inspired Oxygen 0 07/12/22 09:10 Temperature Pulse Rate Respiratory Rate Blood Pressure Pulse Oximetry Oxygen Delivery Room Air Fraction of Inspired Oxygen Intake/Output Intake/Output: Intake & Output 07/09/22 07/10/22 07/11/22 07/12/22 23:59 23:59 23:59 23:59 Intake Total 666 1884 620 Output Total 750 1350 550 Balance -84 534 70 Meds/Results Medications: Active Medications Generic Name Dose Route Start Last Admin Trade Name Freq PRN Reason Stop Dose Admin Enoxaparin Sodium 40 mg 07/11/22 09:00 07/12/22 09:13 Enoxaparin 40 Mg/0.4 Ml Syringe SUB-Q 40 mg DAILY SHELL Administration Furosemide 20 mg 07/11/22 17:00 07/12/22 09:14 Furosemide Inj 40 Mg/4 Ml Vial IV PUSH 20 mg BID SHELL Administration Ibuprofen 800 mg 07/10/22 14:33 07/11/22 09:08 Ibuprofen 400 Mg Tablet PO 800 mg TID PRN Administration pain Levetiracetam 500 mg 07/10/22 21:00 07/12/22 09:13 Levetiracetam 500 Mg Tablet PO 500 mg Q12HR SHELL Administration Losartan Potassium 100 mg 07/11/22 09:00 07/12/22 09:14 Losartan Potassium 100 Mg Tablet PO 100 mg DAILY SHELL Administration Me
[2022-07-12 14:00] VITALS: BP 136/95; PULSE 68; RESP 19; TEMP 36.1; O2SAT 99
[2022-07-12 17:05] LABS: Appearance Urine Cloudy (Clear); Bilirubin Urine Negative (Negative); Blood Urine Trace-intact (Negative); Color Urine Yellow (Yellow); Glucose Urine UA Negative (Negative); Ketones Urine Negative (Negative); Leukocyte Esterase Ur 1+ LEU/UL (Negative); Nitrate Urine Negative (Negative); Protein Urine Trace mg/dL (Negative); Specific Grav Ur 1.025 (1.001-1.035); Urobilinogen Urine 0.2 mg/dL (<2.0); pH Urine 5.5 (5.0-9.0)
[2022-07-12 17:10] LABS: Add Urine Microscopic? YES; Bacteria Urine Trace /hpf; Mucus Urine Rare /lpf; Squamous Epithelial Cell Urine Many /hpf (Few); WBC Urine 21-30 /hpf
[2022-07-12 20:00] VITALS: PULSE 74; RESP 18; O2SAT 100
[2022-07-12 20:26] VITALS: PULSE 68
[2022-07-12 21:47] VITALS: BP 140/87; PULSE 74; RESP 18; TEMP 36.2; O2SAT 100
[2022-07-13 06:00] VITALS: BP 162/93; PULSE 65; RESP 16; TEMP 36.1; O2SAT 98
[2022-07-13 06:50] LABS: Hematocrit 34.6 % (37.0-47.0); Mean Corpuscular HGB Conc 31.8 g/dl (32-36); Mean Corpuscular Hemoglobin 26.8 pg (26-34); Mean Corpuscular Volume 84.4 fl (80-100); Mean Platelet Volume 9.4 fl (7.4-10.4); Platelet Count Result 407 k/mm3 (150-375); Red Cell Distribution Width 15.9 % (11.5-14.5); White Blood Count 6.5 K/mm3 (4.5-10.0)
[2022-07-13 07:05] LABS: Alanine Aminotransferase 18 U/L (6-35); Albumin Level 3.9 g/dL (3.5-5.1); Alkaline Phosphatase 101 U/L (38-126); Anion Gap 6 mmol/L (8-16); Aspartate Amino Transferase 19 U/L (14-36); Bilirubin,Total 0.6 mg/dL (0.2-1.3); Blood Urea Nitrogen 17 mg/dL (7-17); Calcium 8.7 mg/dL (8.4-10.2); Carbon Dioxide 27 mmol/L (22-30); Chloride 102 mmol/L (98-107); Estimated CRCL calculation 85 ml/min; Estimated Glomerular Filt Rate > 60; Glucose 93 mg/dL (65-110); Magnesium 2.2 mg/dL (1.6-2.3); Potassium 3.7 mmol/L (3.4-5.0); Sodium 135 mmol/L (137-145)
[2022-07-13 08:45] VITALS: PULSE 62
[2022-07-13] MEDS: METOPROLOL TARTRATE 25 MG TABLET PO (08:45)
[2022-07-13] MEDS: levETIRAcetam 500 MG TABLET PO (08:45)
[2022-07-13] MEDS: LOSARTAN POTASSIUM 100 MG TABLET PO (08:45)
[2022-07-13] MEDS: FUROSEMIDE INJ 40 MG/4 ML VIAL 20 MG IV PUSH (08:47)
[2022-07-13] MEDS: POTASSIUM CHLORIDE 20 MEQ TABLET.ER 40 MEQ PO (08:47)
[2022-07-13] MEDS: ENOXAPARIN 40 MG/0.4 ML SYRINGE SUB-Q (08:47)
--- NOTE | 2022-07-13 10:31 | P.CDI_ITS ---
CDI Query Clarified Diagnosis Clarified Diagnosis: Elevated BNP on 07/10 lab work. Pt receiving Furosemide IV BID. Documented history of CHF. CHF noted on the assessment and plan. PT presents with complaints of increasing shortness of breath and BLE edema. Please specify type and acuity of heart failure if known. * Acute * Chronic * Acute on Chronic * Unknown * Systolic * Diastolic * Combined Systolic and Diastolic * Unknown
--- NOTE | 2022-07-13 11:13 | PM.DS ---
DS: Admitting Diagnosis Discharge Date 07/13/22 Admitting Diagnosis CHF exacerbation DS: Discharge Diagnosis Discharge Diagnosis (1) Congestive heart failure: Code(s): I50.9 - Heart failure, unspecified Status: Acute Assessment and Plan: Patient states she has diagnosis with congestive heart failure approximately 3 years ago. Patient presented with shortness of breath and edema. Last echo in May of last year showed normal right and left ventricular size, normal systolic function, mildly enlarged left atrium, trivial amounts of mitral, aortic and pulmonic valve regurg, EF of 60-65%, normal diastolic function. Diastolic heart failure acute exacerbation. Patient given 1 dose of Lasix in the ED. Continue IV Lasix 20 mg b.i.d. 20 mEq potassium daily 1500 mL fluid restriction Continue losartan 100 mg Add metoprolol 25 mg b.i.d. Low-salt diet (2) Epilepsia: Code(s): G40.909 - Epilepsy, unspecified, not intractable, without status epilepticus Status: Acute Assessment and Plan: Continue with Keppra (3) Hypertension: Code(s): I10 - Essential (primary) hypertension Status: Acute Assessment and Plan: Continue with losartan (4) Flank pain: Code(s): R10.9 - Unspecified abdominal pain Status: Acute Assessment and Plan: Patient experiencing bilateral flank pain with positive CVA tenderness. Analgesics as needed CT abdomen pelvis normal UA normal DS: Summary Hospital Course Reason for hospitalization: CHF exacerbation Hospital Course: Patient presented to the ED on 07/10/2022 with increased shortness of breath with exertion, cough and orthopnea. Patient has a history of congestive heart failure, hypertension and tobacco use. Patient had echo on 05/24/2022 that revealed normal systolic and diastolic function with EF of 60-65% and trivial amounts of mitral, aortic and pulmonic valve regurgitation. Patient presented with pedal edema. Chest x-ray revealed mild pulmonary edema. CTA negative for pulmonary embolism, and revealed pulmonary edema. Patient afebrile with normal white blood cell count, pneumonia less likely. Patient does not take diuretics at home. She stated to me that she had a prescription for Lasix that was approximately 1-year-old in that she had not taken them in a while. When asking patient about compliance she stated that she takes her Keppra and losartan every day as prescribed. Patient started on IV Lasix 20 mg b.i.d., 20 mEq potassium daily, metoprolol 25 mg b.i.d., fluid restriction, and low-salt diet. Patient with uncontrolled hypertension and hypertensive on arrival. Blood pressure mildly improved with metoprolol and furosemide. Patient edema improved with Lasix. Advised the patient monitor blood pressures at home and follow-up with primary care provider regarding hypertension. Discussed the importance of smoking cessation with the patient and offered nicotine patches if needed. Discharging patient on metoprolol, Lasix, and potassium supplement. If eyes repeat labs within 1 week and follow up primary care in 1 week. Time spent discussing smoking cessation with patient: 3 to 10 minutes Time Spent with Patient Time attestation: Total time spent providing and/or coordinating discharge services: Exam Narrative: GENERAL: Comfortable, no acute distress HENMT: moist mucous membranes EYES: EOM intact b/l NECK: no lymphadenopathy RESPIRATORY: clear to auscultation CARDIO: RRR GI: soft, nontender, bowel sounds present SKIN: no rashes EXTREMITIES: +1 pitting edema over feet, dorsalis pedis pulses +2, redness or tenderness, improved from admission DS: Data Data Completed and Pending Labs on day of discharge: Labs from last 24 hours 07/13/22 07/13/22 07/12/22 06:20 06:20 16:57 WBC 6.5 RBC 4.10 L Hgb 11.0 L Hct 34.6 L MCV 84.4 MCH 26.8 MCHC 31.8 L RDW
== END 2022-07-13 12:10 | disposition home or self-care (01) | DRG 194 ==
LOC: ANHED 08:18 → ANH3MEDSUR 12:05
PROVIDERS: Nurse Practitioner; Admitting Provider Family Medicine; Emergency Provider Emergency Medicine; PCP Internal Medicine; Visit Provider Internal Medicine Critical Care Medicine
DX: I11.0 Hypertensive heart disease with heart failure (principal); I50.31 Acute diastolic (congestive) heart failure; E66.01 Morbid (severe) obesity due to excess calories; F17.210 Nicotine dependence, cigarettes, uncomplicated; G40.909 Epilepsy, unspecified, not intractable, without status epilepticus; R10.9 Unspecified abdominal pain; Z20.822 Contact with and (suspected) exposure to COVID-19; Z23 Encounter for immunization; Z85.3 Personal history of malignant neoplasm of breast; Z86.718 Personal history of other venous thrombosis and embolism; Z87.442 Personal history of urinary calculi; Z68.41 Body mass index [BMI] 40.0-44.9, adult
CPT/HCPCS: 36415; 71046; 74176; 80053; 81001; 83735; 83880; 84132; 84443; 84484; 85025; 85027; 87086; 87088; 87637; 90471; 90686; 93005; 96372; 96374; 99285; A9270; G0008; G0378; J1650; J1940

== ENCOUNTER 2023-07-05 13:52 | Outpatient (CLI) | payer OTHER, SELFPAY ==
--- NOTE | ~2023-07-05 | XR_ITS ---
EXAM: XR hand RT min 3V DATE: 07/05/2023 14:07 HISTORY: M79.641 - Pain in right hand, CARPAL TUNNEL X 1 YR AGO . COMPARISON: 01/06/2022, images only. FINDINGS: Normal mineralization. No fracture or dislocation. No lytic or blastic lesion. Mild scatte red arthritic changes typical of osteoarthritic arthritis, most notably in the interphalangeal joints of the fingers and thumb. No erosion or periosteal change. Soft tissues within normal limits. IMPRESSION: Mild polyarticular osteoarthritis. Reviewed, dictated and finalized at location [facility]
== END 2023-07-05 13:53 | disposition home or self-care (01) ==
LOC: ANHIMG 13:55
PROVIDERS: Visit Provider Orthopaedic Surgery
DX: M19.041 Primary osteoarthritis, right hand (principal)
CPT/HCPCS: 73130

== ENCOUNTER 2023-09-29 12:04 | Outpatient (CLI) | payer OTHER, SELFPAY ==
--- NOTE | 2023-09-29 12:21 | ECG_ITS ---
SEE SCANNED COPY FOR CONFIRMED REPORT MTDD
[2023-09-29 13:13] LABS: Anion Gap 6 mmol/L (4-12); Blood Urea Nitrogen 13 mg/dL (7-17); Calcium 9.6 mg/dL (8.4-10.2); Carbon Dioxide 28 mmol/L (22-30); Chloride 105 mmol/L (98-107); Estimated Glomerular Filt Rate > 60; Glucose 91 mg/dL (65-110); Potassium 3.6 mmol/L (3.4-5.0); Sodium 139 mmol/L (137-145)
== END 2023-09-29 12:05 | disposition home or self-care (01) ==
PROVIDERS: Anesthesiology; Visit Provider Orthopaedic Surgery
DX: Z01.818 Encounter for other preprocedural examination (principal); I10 Essential (primary) hypertension; Z79.899 Other long term (current) drug therapy
CPT/HCPCS: 36415; 80048; 93005

== ENCOUNTER 2023-09-30 00:12 | Day surgery (SDC) | payer OTHER, SELFPAY ==
[2023-09-22 09:33] VITALS: BMI 40.4
--- NOTE | 2023-09-22 09:40 | PC.NURSE ---
Report to the Outpatient Waiting Room, entrance under the green pavilion located off [facility], at time 12:30 on date 09/30/23. Planned Procedure Time: 2:30. Time changes happen often and if your time is changed the preop area will call you the afternoon before. - You and your visitor will be asked to self-screen and do not enter if you have any COVID symptoms. - A mask is optional within the hospital at this time. Patients may have clear liquids (water, carbonated beverages, clear teas, apple juice) until 3 hours prior to surgery with a maximum of 20 ounces. - No food from midnight until time of surgery Take the following medications with a SIP of water the morning of surgery: KEPPRA, METOPROLOL, STEROID DO NOT STOP ANY OF YOUR OTHER PRESCRIPTION MEDICATIONS PRIOR TO SURGERY ?EXCEPT THE FOLLOWING Medications to discontinue per physician: IBUPROFEN Date to take last dose: 10/02/23 Please no make-up, nail romansh, hairspray, perfume, deodorant, or body powder the day of surgery. No jewelry (including any body piercings) or valuables the day of surgery, leave them at home. Please take a shower or bath the night before, or the morning of, surgery with an antibacterial soap. Wear comfortable, loose fitting clothing. - Jewelry must be removed prior to entering the operating room. Rings and piercings that are not removed may be cut off. - The hospital will not accept responsibility for valuables. - Please leave all valuables, including medications, at home the day of surgery. If you are going home after surgery, a licensed route cdl driver must drive you home. - NO public transportation without another adult if you receive anesthesia. - We recommend that an adult stay with you for 24 hours following discharge. - We also recommend that you do not drive, make important decision, drink alcoholic beverages, or take any drugs that were not prescribed by your health care provider for at least 24 hours after your discharge time. Follow any additional instructions given to you from your surgeon. If you or anyone in your household have experienced Covid symptoms in the past week, please notify your surgeon or the nurse liaison at the phone number below for possible testing. Telephone instructions given to PT Mónica RANDALL and asked if any additional questions and then verbalized understanding. Patient advised to call surgeon office or pre surgery nurse liaison [phone] if any additional questions.
--- NOTE | 2023-09-30 11:55 | WPDHPUPDATE1 ---
History and Physical Update Update Date/Time: 09/30/23 11:55 History and Physical has been reviewed, including an updated exam of the patient. There are NO changes in the patient's condition. Risks, benefits, and alternatives have been discussed and questions answered. Patient agrees to proceed with procedure.
[2023-09-30 12:33] VITALS: BP 189/118; PULSE 80; RESP 16; TEMP 36; O2SAT 100
[2023-09-30 12:50] VITALS: BP 179/109
--- NOTE | 2023-09-30 14:40 | SUR.PREOP ---
Pt bp was elevated upon arrival. It was determined not to do her procedure today. Pt was discharged home with instructions to follow up her primary DrEdgar and to call Dr. Steward's office to reschedule when bp is more controlled.
== END 2023-09-30 14:48 | disposition home or self-care (01) ==
PROVIDERS: Visit Provider Orthopaedic Surgery
PROC: (CPT 64721; principal; 2023-09-30 14:30)
DX: G56.01 Carpal tunnel syndrome, right upper limb (principal); I10 Essential (primary) hypertension
CPT/HCPCS: 99211; G0463

== ENCOUNTER 2023-10-18 00:24 | Day surgery (SDC) | payer OTHER, SELFPAY ==
[2023-10-12 14:41] VITALS: BMI 44.8
--- NOTE | 2023-10-12 14:43 | PC.NURSE ---
Report to the Outpatient Waiting Room, entrance under the green pavilion located off [facility], at time _1200_ on date _[id number]_. Planned Procedure Time: _2pm_. Time changes happen often and if your time is changed the preop area will call you the afternoon before. - You and your visitor will be asked to self-screen and do not enter if you have any COVID symptoms. - A mask is optional within the hospital at this time. Patients may have clear liquids (water, carbonated beverages, clear teas, apple juice) until 3 hours prior to surgery with a maximum of 20 ounces. - No food from midnight until time of surgery Take the following medications with a SIP of water the morning of surgery: ___Levetiracetam and Metoprolol DO NOT STOP ANY OF YOUR OTHER PRESCRIPTION MEDICATIONS PRIOR TO SURGERY ?EXCEPT THE FOLLOWING Medications to discontinue per physician Patient stopped Ibuprofen [id number] Date to take last dose Please no make-up, nail ukrainian, hairspray, perfume, deodorant, or body powder the day of surgery. No jewelry (including any body piercings) or valuables the day of surgery, leave them at home. Please take a shower or bath the night before, or the morning of, surgery with an antibacterial soap. Wear comfortable, loose fitting clothing. - Jewelry must be removed prior to entering the operating room. Rings and piercings that are not removed may be cut off. - The hospital will not accept responsibility for valuables. - Please leave all valuables, including medications, at home the day of surgery. If you are going home after surgery, a licensed drivers license examiner must drive you home. - NO public transportation without another adult if you receive anesthesia. - We recommend that an adult stay with you for 24 hours following discharge. - We also recommend that you do not drive, make important decision, drink alcoholic beverages, or take any drugs that were not prescribed by your health care provider for at least 24 hours after your discharge time. Follow any additional instructions given to you from your surgeon. If you or anyone in your household have experienced Covid symptoms in the past week, please notify your surgeon or the nurse liaison at the phone number below for possible testing. Telephone instructions given to __Giorgio___and asked if any additional questions and then verbalized understanding. Patient advised to call surgeon office or pre surgery nurse liaison [phone] if any additional questions.
[2023-10-18] VITALS (8 sets, daily range): BP systolic 159–177; BP diastolic 99–109; PULSE 59–76; RESP 12–18; TEMP 36.2–36.7; O2SAT 96–100
--- NOTE | 2023-10-18 11:05 | WPDHPUPDATE1 ---
History and Physical Update Update Date/Time: 10/18/23 11:05 History and Physical has been reviewed, including an updated exam of the patient. There are NO changes in the patient's condition. Risks, benefits, and alternatives have been discussed and questions answered. Patient agrees to proceed with procedure.
--- NOTE | 2023-10-18 12:27 | WPDANESEPPF ---
Anes - Initial Pre Proc Eval Procedure: Operation Date: 10/18/23 13:30 Proposed Procedures p Right Carpal Tunnel Release - Eliu Steward MD Date/Time: 10/18/23 12:27 Surgeon: Eliu Steward MD Pre Op Diagnosis: Rt Carpal Tunnel Syn Patient Data Age: 53 Gender: F Height: 1.68 m Weight: 125.9 kg Allergies Allergy/AdvReac Type Severity Reaction Status Date / Time Penicillins AdvReac Other Verified 10/18/23 12:28 paper tape Allergy Mild blisters Uncoded 10/18/23 12:28 Home Medications Medication Instructions Recorded Confirmed Type ibuprofen 800 mg tablet 800 mg PO TID PRN pain #30 tabs 06/27/22 10/12/23 Rx losartan 100 mg tablet 100 mg PO DAILY 06/27/22 10/12/23 History furosemide 20 mg tablet 20 mg PO DAILY #30 tabs 07/13/22 10/12/23 Rx metoprolol tartrate 25 mg tablet 25 mg PO Q12HR #60 tabs 07/13/22 10/12/23 Rx potassium chloride 20 mEq 40 meq PO DAILY@0800 #30 tabs 07/13/22 10/12/23 Rx tablet,extended release (K-Tab) levetiracetam 500 mg tablet 500 mg PO Q12H #180 tabs 12/15/22 10/12/23 Rx (Keppra) Patient hx anesthesia problems: none Family hx anesthesia problems: none Results Review: All pre-operative results and documents have been reviewed as part of the pre-operative evaluation. [facility], LAT[facility] Past Medical History Medical History Breast cancer (2004) Status post left breast lumpectomy and chemo radiation. Congestive heart failure 1. Complete two-dimensional, color flow and Doppler transthoracic echocardiogram is performed. 2. Normal right and left ventricular size and systolic function. 3. Mildly enlarged left atrium. 4. Trivial amounts of mitral, aortic and pulmonic valve regurgitation. Deep venous thrombosis Related to Port-A-Cath. Epilepsy Hypertension Hypokalemia Kidney stone Surgical History Surgical History History of bilateral breast reduction surgery History of carpal tunnel release (~03/23/22) right hand History of lumpectomy of left breast Family History Family History Grandparent Cancer Heart disease Father Heart disease Mother Diabetes mellitus Social History Social History Social History: The patient is single and has 3 children. She lives with her daughter. She is not currently employed. She smokes less than half a pack a cigarettes a day. Surrogate medical decision maker: Adán Scott, mother. Code status: Full code. Smoking packs per day: 0.3 Smoking cigarettes per day: 6.0 Years smoked: 30 Smoking pack-years: 9.00 Smoking status: Current every day smoker Tobacco type: cigarettes Second hand tobacco smoke exposure: Yes Alcohol intake: never Drinks per week: 3 Alcohol use details: once year Substance use: never Substance use type: does not use Other substance usage details: smoked when teenager Do You Feel Safe in your Home?: Yes Lack of Transportation: No Lack of Food: Never True Current Housing: I Have Housing Concerned About Future Housing: No Difficulty Paying Gas/Electric Bills: No Difficulty Paying for Meds: No Currently Unemployed: No Education: High School Diploma/GED Difficulty w/ Childcare or Family Care: No Living arrangements: with family Spiritual care concerns: No Anes - Eval Final PreProcedure Day of Procedure 10/18/23 12:27 Patient weight: super morbidly obese Heart: regular rate and rhythm Lungs: clear to auscultation Airway: Mallampati scale and special considerations (Teeth in very poor condition, many upper missing, one cap w gold covering, none loose per pt. ) Neurological: alert and oriented Last oral intake: >/= 8 hours ASA classification: III Emergent: no Anesthetic plan: proceed Anesthesia type a
[2023-10-18] MEDS: LACTATED RINGERS 1,000 ML 30 ML IV CONT (12:35)
[2023-10-18] MEDS: KETOROLAC 15 MG/ML VIAL (*BKC) IV PUSH (12:36)
[2023-10-18] MEDS: ACETAMINOPHEN 500 MG TABLET 1000 MG PO (12:36)
[2023-10-18] MEDS: ceFAZolin 3 GM/D5W 100 ML 100 ML IVPB (13:30)
[2023-10-18] MEDS: BUPIVACAINE/EPINEPHRINE 0.5% 10 ML VIAL INFILTRATE (14:23)
[2023-10-18] MEDS: oxyCODONE HCL (*CRX) 5 MG TAB IR PO (15:55)
--- NOTE | 2023-10-18 16:18 | W.PM.PROC2 ---
Procedure Note - Detailed Date of Procedure 10/18/23 Pre-op Diagnosis Rt Carpal Tunnel Syndrome Post-op Diagnosis Same Procedure Performed Right carpal tunnel release Surgeon Eliu Steward MD Anesthesia General Indications Persistent median neuropathy status post carpal tunnel release. Findings Significant scarring throughout the carpal tunnel. Some tightness distally. Tightness at the distal forearm fascia as well. This was entirely released. Neurolysis at the center of the wound. Description of Procedure A general anesthetic was administered. A well-padded tourniquet was placed high on the arm. The hand was prepped and draped in the usual sterile fashion. The proposed incision was marked using typical anatomic landmarks. Typical incision for the carpal tunnel was extended past the wrist flexion crease with zigzag type incision. 7ML 0.5% Marcaine with epinephrine was injected along the incision line and at the distal forearm. The limb was exsanguinated and the tourniquet inflated to 250 millimeters of mercury. A longitudinal incision was taken sharply. Dissection was brought down to the transverse carpal ligament. Under direct vision the ligament was incised sharply. The scar tissue was encountered as well as more normal tissue proximal and distal to the previous exposure. There was extensive scarring about the median nerve. This was carefully released with the tenotomy scissors. That the neuro was thickened at the center part of the wound, and this was released carefully. The transverse carpal ligament was confirmed to be widely patent. The wound was irrigated, and closed with interrupted 3-0 Prolene suture. A sterile bulky dressing with forearm plaster was placed. The patient was brought to the recovery room in stable condition. Estimated Blood Loss 1 Drains No Pathology None sent Complications No immediate complications Condition Stable Disposition PACU [facility] Billing Surgery - Charge Forward: Surgery Billing
== END 2023-10-18 16:34 | disposition home or self-care (01) ==
PROVIDERS: Visit Provider Orthopaedic Surgery
PROC: (CPT 64721; principal; 2023-10-18 13:30)
DX: G56.01 Carpal tunnel syndrome, right upper limb (principal); G40.909 Epilepsy, unspecified, not intractable, without status epilepticus; I11.0 Hypertensive heart disease with heart failure; I50.9 Heart failure, unspecified; Z86.718 Personal history of other venous thrombosis and embolism; Z92.21 Personal history of antineoplastic chemotherapy; Z92.3 Personal history of irradiation; Z85.3 Personal history of malignant neoplasm of breast; F17.210 Nicotine dependence, cigarettes, uncomplicated; E66.01 Morbid (severe) obesity due to excess calories; Z68.42 Body mass index [BMI] 45.0-49.9, adult
CPT/HCPCS: 64721; A9270; J0690; J1885; J2250; J2405; J2704; J3010; J7120

== ENCOUNTER 2024-01-11 11:46 | Outpatient (RCR) | payer OTHER, SELFPAY ==
--- NOTE | 2024-01-11 13:35 | OPREHPOC ---
Outpatient Therapy Plan of Care This is a Multidisciplinary Plan of Care that may contain components documented by all disciplines (PT, OT, and ST.) PT Problem 1 PT Problem #1 Knowledge Deficit PT Goal 1 Goal *indep with HEP Target Visit 8 PT Problem 2 PT Problem #2 Pain PT Goal 1 Goal 1* pt report pain at worst rating of 6/10 2* pt report tolerance with working of 4 hours before have to stop 3* pt report with sleeping, awaken 2x/night due to pain Target Visit 8 PT Problem 3 PT Problem #3 Impaired Flexibility PT Goal 1 Goal increase R wrist and finger ROM to improve use of R hand active ROM: 1* wrist flexion 60' 2* wrist extension 50' 3* 4th finger flexion - with chandelier maker finger tip to palm Target Visit 8 PT Problem 4 PT Problem #4 Impaired Strength PT Goal 1 Goal increase strength of R wrist and hand to improve ability to do home, self care and work tasks: 1* chandelier maker dynamometer 40# 2* lateral pinch index finger 8# with hand wt: wrist x 5 reps; 3* flexion 3# 4* extension 3# Target Visit 8
--- NOTE | 2024-01-11 13:35 | PTOPEVAL1 ---
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 Reports constant numbness over 4th finger. 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 Reports issues with sleeping and use of R hand for home and work tasks. With the evaluation: decreased wrist & 4th finger ROM with decreased strength of scrub woman, pinch, wrist and fingers; hypersensitivity over wrist incision. [employer] Developer dynamometer R is 25# and L is 55#. Skilled PT services are indicated for modalities to decrease pain and sensitivity; therapeutic exercises to increase strength and ROM with education for HEP and pain control. Plan of Care Interventions Electrical Stimulation,Hot Pack/Cold Pack,Manual Therapy,Patient/Caregiver Education,Therapeutic Activities,Therapeutic Exercise,Ultrasound,Other Other Interventions taping PT Services Indicated Yes Treatment Frequency and 1-2x/wk for 8 weeks Duration These treatments will address the objective and functional deficits as defined above. The patient will be advanced safely and appropriately in order for the patient to progress towards his/her prior level of function. Additional exercises will be introduced and as well as a comprehensive home exercise program upon discharge, if needed, ?to ensure carryover of functional gains achieved in the clinic. This treatment plan has been reviewed and agreement upon by the patient.
--- NOTE | 2024-01-16 14:53 | PCPTNOTE ---
pt did not show for today's appt; called and left voice message with reminder for next appt.
--- NOTE | 2024-01-24 16:30 | PCPTNOTE ---
pt did not show for today's appt. Called and left her a message with reminder for next appt. And if she does not show for the next appt, she will be d/c from PT.
--- NOTE | 2024-01-26 16:12 | PCPTNOTE ---
pt did not show for today's appt;
--- NOTE | 2024-02-03 15:57 | PTOPDC ---
Assessment and note entered by Layla De Oliveira, PT Discharge Report Assessment Status Discharge - Pt Not Present ICD-10 Condition Codes (PT) Weakness R53.1,Z47.89 Other ICD-10 Condition Codes ( Z98.890- other post procedural PT) Onset October 18, 2023 Subjective Information pt was not seen this date. Assessment PT Clinical Summary Giorgio received the PT evaluation on January 10 and has not returned for 3 scheduled appointments. Therefore, she will be discharged at this time. The goals were not addressed. Plan of Care PT Services Indicated No
== END 2024-04-10 23:59 | disposition home or self-care (01) ==
LOC: ANHPT 11:46
PROVIDERS: Visit Provider Physician Assistant Surgical
DX: Z98.890 Other specified postprocedural states (principal); R53.1 Weakness; Z47.89 Encounter for other orthopedic aftercare
CPT/HCPCS: 97110; 97161; 97530